=== PATIENT | female | born 1975 | race Caucasian/White ===

== ENCOUNTER 2017-01-22 05:20 | Emergency (ER) | payer MEDICAID ==
[~2017-01-22] VITALS: Ht 157.5 cm; Wt 94.3 kg
--- NOTE | 2017-01-22 05:26 | Emergency Room Report ---
History of Present Illness General Chief Complaint: To Be Triaged Source: Patient Present Illness HPI 41YOF walk-in with SOB and dry cough for 1 month Has not been medically evaluated Denies smoking, history of asthma STRONG family history of asthma Denies fever/chills, other medical problems Allergies: Coded Allergies: ACETAMINOPHEN (Verified Allergy, Unknown, 01/22/17) CODEINE (Verified Allergy, Unknown, 01/22/17) Patient History Past Medical History: none Past Surgical History: none Pertinent Family History: asthma Social History: Denies: smoking, alcohol use, drug use Now: No Immunizations: UTD Reviewed Nursing Documentation: PMH: Agreed, PSxH: Agreed Review of Systems All Other Systems: negative except mentioned in HPI Physical Exam Sp02 EP Interpretation: reviewed, normal General Appearance: normal inspection, well appearing, no apparent distress, alert, GCS 15, non-toxic Head: normocephalic, atraumatic Eyes: bilateral eye PERRL, bilateral eye EOMI ENT: normal ENT inspection, hearing grossly normal, normal voice Neck: normal inspection, full range of motion, supple, no bony tend Respiratory: normal inspection, lungs clear, normal breath sounds, no respiratory distress, no retraction, no accessory muscle use, speaking full sentences, wheezing Cardiovascular #1: regular rate, rhythm, no edema Gastrointestinal: normal inspection, normal bowel sounds, non tender, soft, no guarding, no hernia Genitourinary: no CVA tenderness Musculoskeletal: normal inspection, back normal, normal range of motion, Sirena' s Sign negative Neurologic: normal inspection, alert, oriented x3, responsive, heel burnisher III-XII nml as tested, speech normal Psychiatric: normal inspection, judgement/insight normal, mood/affect normal Skin: normal inspection, normal color, no rash Medical Decision Making ER Course VSS. Afebrile Insp/Exp wheezing Improved with duonebs X3 and prednisone Likely asthma CXR negative for PNA DC Home with PMD followup for PFTs Rx predisone, MDI DC Rhythm Strip Diag. Results EP Interpretation: yes Chest X-Ray Diagnostic Results Chest X-Ray Diagnostic Results : Chest X-Ray Ordered: Yes # of Views/Limited/Complete: 1 View Indication: Shortness of Breath EP Interpretation: Yes Interpretation: no consolidation, no effusion, no pneumothorax, no acute cardiopulmonary disease Impression: No acute disease Electronically Signed by: Dr Karen Gerardo MD Status: improved Disposition: HOME, SELF-CARE Scripts Albuterol Sulfate (VENTOLIN HFA) 18 Gm Hfa.aer.ad 1 PUFF INH EVERY 6 HOURS for cough, SOB, #18 GM 0 Refills Prov: KAREN GERARDO M.D. 01/22/17 Prednisone* (PREDNISONE*) 20 Mg Tablet 40 MG ORAL DAILY for 5 Days, #10 TAB Prov: KAREN GERARDO M.D. 01/22/17 KAREN GERARDO M.D. Jan 22, 2017 05:26
[2017-01-22] MEDS ORDERED: NKM (05:28)
[2017-01-22] MEDS: Albuterol ud Inhalation HHN SCH ×3 (05:43→06:05)
[2017-01-22] MEDS: Ipratropium 0.02% Inh Soln 2.5ml UD HHN SCH ×3 (05:44→06:05)
[2017-01-22 05:48] VITALS: BP 125/85
[2017-01-22] MEDS ORDERED: PREDNISONE20 MG ORAL (05:48)
[2017-01-22] MEDS ORDERED: VENTOLIN HFA18 GM INH (05:48)
[2017-01-22 07:27] VITALS: BP 118/61
[2017-01-22 07:41] VITALS: BP 118/61
--- NOTE | 2017-01-22 12:10 | Diagnostic Imaging Report ---
Indication: Dyspnea Comparison: None A single view chest radiograph was obtained. Findings: Cardiomediastinal appearance is within normal limits for age. Pulmonary vascularity is appropriate. The diaphragmatic contour is smooth and costophrenic angles are sharp. No pleural effusions are identified. The bones are unremarkable. Impression: No acute findings
== END 2017-01-22 07:43 | disposition home or self-care (01) ==
LOC: EMR 06:47
DX: R06.02 Shortness of breath (principal); R05 Cough; R06.2 Wheezing; Z88.6 Allergy status to analgesic agent
CPT/HCPCS: 71010; 94640; 94664; 99284; J7512

== ENCOUNTER 2017-03-03 11:59 | Emergency (ER) | payer MEDICAID ==
[~2017-03-03] VITALS: Ht 157.5 cm; Wt 68.0 kg
[~2017-03-03 11:59] MED LIST: NKM; PREDNISONE20 MG ORAL; VENTOLIN HFA18 GM INH
[2017-03-03] MEDS: Albuterol ud Inhalation HHN SCH ×3 (12:10→13:03)
[2017-03-03] MEDS: Ipratropium 0.02% Inh Soln 2.5ml UD HHN SCH ×3 (12:10→13:02)
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
[2017-03-03 13:00] VITALS: BP 117/55
[2017-03-03] MEDS ORDERED: ADVAIR 250-501 EACH INH (13:49)
[2017-03-03] MEDS ORDERED: PREDNISONE20 MG ORAL (13:49)
[2017-03-03 14:00] VITALS: BP 111/56
[2017-03-03 14:30] VITALS: BP 117/55
--- NOTE | 2017-03-03 17:24 | Diagnostic Imaging Report ---
Indication: Reason For Exam: COUGH Technique: One view of the chest Comparison: 01/22/2017 Findings: Lungs and pleural spaces are clear. Heart size is normal. No significant interim change Impression: No acute process
== END 2017-03-03 14:33 | disposition home or self-care (01) ==
LOC: EMR 12:30
DX: J45.901 Unspecified asthma with (acute) exacerbation (principal); Z88.6 Allergy status to analgesic agent
CPT/HCPCS: 71010; 99284; J7512

== ENCOUNTER 2017-06-18 21:49 | Emergency (ER) | payer MEDICAID, OTHER ==
[~2017-06-18] VITALS: Ht 157.5 cm; Wt 79.4 kg
[~2017-06-18 21:49] MED LIST changes: +ADVAIR 250-501 EACH INH
[2017-06-18] MEDS ORDERED: FERROUS SULFAT325 MG ORAL (22:07)
[2017-06-18 22:55] LABS: APPEARANCE,URINE CLOUDY; BASOPHILS % (AUTO) 0.5 % (0.0-2.0); BILIRUBIN, URINE NEGATIVE (NEGATIVE); EOSINOPHILS % (AUTO) 0.9 % (0.0-3.0); GLUCOSE, URINE (UA) NEGATIVE (NEGATIVE); HEMATOCRIT 32.5 % (37.0-47.0); HEMOGLOBIN 9.4 G/DL (12.0-16.0); KETONES,URINE 1+ (NEGATIVE); LEUKOCYTE ESTERASE ,URINE 3+ (NEGATIVE); LYMPHOCYTES % (AUTO) 14.7 % (20.0-45.0); MEAN CORPUSCULAR VOLUME 67 FL (80-99); MONOCYTES % (AUTO) 3.8 % (1.0-10.0); NEUTROPHILS % (AUTO) 80.1 % (45.0-75.0); NITRITE,URINE NEGATIVE (NEGATIVE); PH,URINE 5 (4.5-8.0); PLATELET COUNT 273 K/UL (150-450); PROTEIN,URINE 2+ (NEGATIVE); RED BLOOD COUNT 4.85 M/UL (4.20-5.40); RED CELL DISTRIBUTION WIDTH 17.8 % (11.6-14.8); UROBILINOGEN,URINE 1 MG/DL (0.0-1.0); WHITE BLOOD COUNT 11.4 K/UL (4.8-10.8)
--- NOTE | 2017-06-18 22:55 | Emergency Room Report ---
History of Present Illness General Chief Complaint: Abdominal Pain Source: Patient Present Illness HPI 41-year-old female with no sig pmhx p/w abdominal pain 3days. localized to lower abdomen, periumbilical region and left lower region, non radiating, sharp in nature, intermittent. No relieving or exacerbating factors. Some nausea but no vomiting no diarrhea or constipation + fever, chills. No hx of abdominal surgeries. No hx of endoscopies/colonoscopies. No dysuria or hematuria. Denies being Allergies: Coded Allergies: ACETAMINOPHEN (Verified Allergy, Unknown, 01/22/17) BANANA (Verified Allergy, Unknown, 06/18/17) CODEINE (Verified Allergy, Unknown, 01/22/17) PINEAPPLE (Verified Allergy, Unknown, 06/18/17) Patient History Past Medical History: see triage record Past Surgical History: none Pertinent Family History: none Last Menstrual Period: 05/28/17 Now: No : 5 Para: 4 Reviewed Nursing Documentation: PMH: Agreed; PSxH: Agreed Nursing Documentation-PMH Hx Asthma: Yes Review of Systems All Other Systems: negative except mentioned in HPI Physical Exam Vital Signs Date Time Temp Pulse Resp B/P (MAP) Pulse Ox O2 Delivery O2 Flow Rate FiO2 06/18/17 22:02 99.3 100 14 127/82 98 Room Air 99.3 Sp02 EP Interpretation: reviewed, normal General Appearance: alert, GCS 15, non-toxic, moderate distress Head: normocephalic, atraumatic Eyes: bilateral eye normal inspection, bilateral eye PERRL, bilateral eye EOMI ENT: normal ENT inspection, normal pharynx, normal voice, moist mucus membranes Neck: normal inspection, full range of motion, supple Respiratory: normal inspection, lungs clear, normal breath sounds, no respiratory distress, no retraction, no wheezing, speaking full sentences, chest symmetrical Cardiovascular #1: normal inspection, regular rate, rhythm, no edema, normal capillary refill Cardiovascular #2: 2+ radial (R), 2+ radial (L) Gastrointestinal: other - Suprapubic and left lower quadrant tenderness, voluntary guarding, no rebound, no rigidity, normal bowel sounds Musculoskeletal: normal inspection, back normal, normal range of motion, non- tender Neurologic: normal inspection, alert, oriented x3, responsive, motor strength/ tone normal, sensory intact, normal gait, speech normal Psychiatric: normal inspection, judgement/insight normal, memory normal Skin: normal inspection, normal color, no rash, warm/dry, well hydrated, normal turgor Medical Decision Making Diagnostic Impression: Primary Impression: Abdominal pain Additional Impression: Urinary tract infection ER Course 41-year-old female with abdominal pain Differential Diagnosis: Gastritis, gastroenteritis, cholecystitis, appendicitis, diverticulitis,, UTI/ pyelo Plan Basic labs, ua pain control, IVF CT abdopelvis ER course: Patient has remained stable during ED stay. Pain improved. UA positive CT neg excpet possible mesenteric adenitis Disposition: Patient is to be discharged to home with keflex Patient is instructed to follow up with their primary care doctor within 5 days. Strict return precautions discussed with patient such as fever, chills, worsening/severe abdominal pain, nausea, vomiting, black or bloody stools, which may indicate severe illness. Patient verbalizes understanding and agrees with plan. Please note that this Emergency Department Report was dictated using [employer] technology software, occasionally this can lead to erroneous entry secondary to interpretation by the dictation equipment Laboratory Tests Test 06/18/17 22:30 White Blood Count 11.4 K/UL (4.8-10.8) H Red Blood Count 4.85 M/UL (4.20-5.40) Hemoglobin 9.4 G/DL (12.0-16.0) L Hematocrit 32.5 % (37.0-47.0) L Mean Corpuscular Volume 67 FL (80-99) L Mean Corpuscular Hemoglobin 19.4 PG (27.0-31.0) L Mean Corpuscular Hemoglobin Concent 29.0 G/DL (32.0-36.0) L Red Cell Distribution Width 17.8 % (11.6-14.8) H Platelet Count 273 K/UL (150-450) Mean Platelet Volume 8.3 FL (6.5-10.1) Neutrophils (%) (Auto) 80.1 % (45.0-75.0) H Lymphocytes (%) (Auto) 14.7 % (20.0-45.0) L Monocytes (%) (Auto) 3.8 % (1.0-10.0) Eosinophils (%) (Auto) 0.9 % (0.0-3.0) Basophils (%) (Auto) 0.5 % (0.0-2.0) Urine Color Yellow Urine Appearance Cloudy Urine pH 5 (4.5-8.0) Urine Specific [place] 1.020 (1.005-1.035) Urine Protein 2+ (NEGATIVE) H Urine Glucose (UA) Negative (NEGATIVE) Urine Ketones 1+ (NEGATIVE) H Urine Occult Blood 2+ (NEGATIVE) H Urine Nitrite Negative (NEGATIVE) Urine Bilirubin Negative (NEGATIVE) Urine Urobilinogen 1 MG/DL (0.0-1.0) H Urine Leukocyte Esterase 3+ (NEGATIVE) H Urine RBC 5-10 /HPF (0 - 2) H Urine WBC Tntc /HPF (0 - 2) H Urine Squamous Epithelial Cells Moderate /LPF (NONE/OCC) H Urine Bacteria Many /HPF (NONE) H Urine HCG, Qualitative Negative (NEGATIVE) Sodium Level 135 MMOL/L (136-145) L Potassium Level 3.5 MMOL/L (3.5-5.1) Chloride Level 102 MMOL/L (98-107) Carbon Dioxide Level 26 MMOL/L (21-32) Anion Gap 7 mmol/L (5-15) Blood Urea Nitrogen 9 mg/dL (7-18) Creatinine 0.7 MG/DL (0.55-1.30) Estimate Glomerular Filtration Rate > 60 mL/min (>60) Glucose Level 133 MG/DL (74-106) H Lactic Acid Level 1.10 mmol/L (0.66-2.22) Calcium Level 8.5 MG/DL (8.5-10.1) Total Bilirubin 0.4 MG/DL (0.2-1.0) Aspartate Amino Transferase (AST) 10 U/L (15-37) L Alanine Aminotransferase (ALT) 23 U/L (12-78) Alkaline Phosphatase 112 U/L (46-116) Total Protein 8.1 G/DL (6.4-8.2) Albumin 3.6 G/DL (3.4-5.0) Globulin 4.5 g/dL Albumin/Globulin Ratio 0.8 (1.0-2.7) L Lipase 83 U/L (73-393) CT/MRI/US Diagnostic Results CT/MRI/US Diagnostic Results : Imaging Test Ordered: CT ABDO PELVIS Impression CT ABDOMEN & PELVIS With Contrast: Mildly prominent nodes are seen in the mesentery along the right side of the abdomen. This may be related to mesenteric adenitis. Question of some fatty infiltration of the liver. Status post cholecystectomy. The intra-abdominal organs are otherwise unremarkable. The appendix is unremarkable. Diverticulosis without evidence for diverticulitis. No evidence for bowel related inflammatory changes. No evidence for significant bowel loop dilation to suggest an obstructive process. No free intraperitoneal fluid or free intraperitoneal gas. Probable mild linear atelectasis versus scarring at the lung bases. Small umbilical hernia containing fat only. Mild degenerative changes of the thoracolumbar spine. Last Vital Signs Date Time Temp Pulse Resp B/P (MAP) Pulse Ox O2 Delivery O2 Flow Rate FiO2 06/18/17 22:02 99.3 100 14 127/82 98 Room Air 99.3 Disposition: HOME, SELF-CARE Condition: Improved Scripts Cephalexin* (KEFLEX*) 500 Mg Capsule 500 MG ORAL Q6H for 7 Days, #28 CAP 0 Refills Prov: Emanuel Segovia M.D. 06/18/17 Emanuel Segovia M.D. Jun 18, 2017 22:55
[2017-06-18 22:57] LABS: COLOR,URINE YELLOW
[2017-06-18 23:00] VITALS: BP 127/82
[2017-06-18 23:04] LABS: ANION GAP 7 mmol/L (5-15); BLOOD UREA NITROGEN 9 mg/dL (7-18); CALCIUM 8.5 MG/DL (8.5-10.1); CARBON DIOXIDE 26 MMOL/L (21-32); CHLORIDE 102 MMOL/L (98-107); CREATININE 0.7 MG/DL (0.55-1.30); POTASSIUM 3.5 MMOL/L (3.5-5.1); SODIUM 135 MMOL/L (136-145)
[2017-06-18 23:08] LABS: ALANINE AMINOTRANSFERASE 23 U/L (12-78); ALBUMIN 3.6 G/DL (3.4-5.0); ALBUMIN/GLOBULIN RATIO 0.8 (1.0-2.7); ALKALINE PHOSPHATASE 112 U/L (46-116); ASPARTATE AMINO TRANSFERASE 10 U/L (15-37); BILIRUBIN,TOTAL 0.4 MG/DL (0.2-1.0)
[2017-06-18] MEDS ORDERED: KEFLEX500 MG ORAL (23:20)
[2017-06-19 01:52] VITALS: BP 127/78
--- NOTE | 2017-06-19 08:47 | Diagnostic Imaging Report ---
Clinical Indication: Abdominal pain for 4 days Technique: No oral contrast utilized, per emergency room physician request IV administration nonionic contrast. Venous phase spiral acquisition obtained through the abdomen and pelvis. Multiplanar reconstructions were generated. Total dose length product 968.28 mGycm. CTDIvol(s) 18.6 mGy. Dose reduction achieved using automated exposure control Comparison: none Findings: The appendix is normal. There is colonic diverticulosis. No evidence of diverticulitis. There is a tiny fat-containing umbilical hernia. No small bowel distention. No free or loculated intraperitoneal air or fluid. Distal esophagus, stomach, duodenum are unremarkable. The liver is mildly hypoattenuating, consistent with fatty change. The gallbladder is surgically absent. No biliary ductal dilatation. The pancreas is unremarkable The spleen is borderline enlarged, measuring 13.4 cm long axis dimension. The adrenals, kidneys are unremarkable. The uterus is mildly enlarged and demonstrates a few low attenuation masses, probably fibroids. The bladder is unremarkable. Mildly prominent nodes are seen in the right lower quadrant. No pelvic or retroperitoneal mass or adenopathy. The included lung bases are clear except for minimal atelectasis in the inferior lingula. The bones are unremarkable Impression: Artery prominent right lower quadrant lymph nodes, nonspecific, could indicate mesenteric adenitis or reactive adenopathy No acute abnormality otherwise Borderline splenomegaly Mild fatty liver Diverticulosis without evidence of diverticulitis Fibroid uterus Incidental findings of minimal lingular atelectasis, small fat-containing umbilical hernia, prior cholecystectomy This agrees with the preliminary interpretation provided overnight by [facility] teleradiology service. The CT scanner at [facility] is accredited by the [employer] and the scans are performed using protocols designed to limit radiation exposure to as low as reasonably achievable to attain images of sufficient resolution adequate for diagnostic evaluation.
== END 2017-06-19 01:52 | disposition home or self-care (01) ==
LOC: EMR 22:18
DX: N39.0 Urinary tract infection, site not specified (principal); R10.9 Unspecified abdominal pain; J45.909 Unspecified asthma, uncomplicated; Z88.6 Allergy status to analgesic agent; Z91.018 Allergy to other foods; Z90.49 Acquired absence of other specified parts of digestive tract; K57.90 Diverticulosis of intestine, part unspecified, without perforation or abscess without bleeding; K42.9 Umbilical hernia without obstruction or gangrene
CPT/HCPCS: 36415; 74177; 80053; 81003; 81025; 83605; 83690; 85025; 87040; 87086; 96374; 96375; 99284; J2405; Q9967

== ENCOUNTER 2018-04-17 01:09 | Emergency (ER) | payer OTHER ==
[~2018-04-17] VITALS: Ht 157.5 cm; Wt 83.9 kg
[~2018-04-17 01:09] MED LIST changes: +FERROUS SULFAT325 MG ORAL; +KEFLEX500 MG ORAL
[2018-04-17 01:23] VITALS: BP 151/91
--- NOTE | 2018-04-17 01:23 | NUR ---
ED Nurse Note: Patient walk in c/o pressure in chest radiating to back and shortness of breath for 3x days. Patient reports hx of asthma. pt appears asymptomtic with no accessory muscle use, O2 sat 99% room air and is alert and oriented times 4. lung sounds clear bi laterally.
[2018-04-17] MEDS ORDERED: PREDNISONE20 MG ORAL (02:10)
--- NOTE | 2018-04-17 02:11 | Emergency Room Report ---
History of Present Illness General Chief Complaint: Chest Pain Source: Patient Present Illness HPI Is a 42-year-old female with a history of asthma. She presents with chief complaint of chest tightness. The last 3 days her asthma been acting up. She' s been wheezing and coughing. Better with her inhaler. Was take a deeper she felt chest tightness. She felt short of breath. She was concerned so she came in. Now pain is to the upper chest area. No nausea no vomiting. Coughing but nonproductive in nature. No fever. No diaphoresis but no exertional component. Allergies: Coded Allergies: ACETAMINOPHEN (Verified Allergy, Unknown, 01/22/17) BANANA (Verified Allergy, Unknown, 06/18/17) CODEINE (Verified Allergy, Unknown, 01/22/17) PINEAPPLE (Verified Allergy, Unknown, 06/18/17) Patient History Past Medical History: see triage record, old chart reviewed, asthma Past Surgical History: other Pertinent Family History: none Social History: Denies: smoking Last Menstrual Period: 04/10/2018 Now: No Immunizations: other Reviewed Nursing Documentation: PMH: Agreed; PSxH: Agreed Nursing Documentation-PMH Past Medical History: No History, Except For Hx Asthma: Yes Hx COPD: Yes Review of Systems Eye: Denies: eye pain, blurred vision ENT: Denies: ear pain, nose congestion, throat swelling Respiratory: Reports: shortness of breath; Denies: cough Cardiovascular: Reports: chest pain; Denies: palpitations Gastrointestinal: Denies: abdominal pain, diarrhea, nausea, vomiting Musculoskeletal: Denies: back pain, joint pain Skin: Denies: rash Neurological: Denies: headache, numbness Endocrine: Denies: increased thirst, increased urine Hematologic/Lymphatic: Denies: easy bruising All Other Systems: negative except mentioned in HPI Physical Exam Vital Signs Date Time Temp Pulse Resp B/P (MAP) Pulse Ox O2 Delivery O2 Flow Rate FiO2 04/17/18 01:12 97.5 93 16 151/91 96 Room Air 04/17/18 01:23 99 vitals with high blood pressure Sp02 EP Interpretation: reviewed, normal General Appearance: well appearing, no apparent distress, alert Head: normocephalic, atraumatic Eyes: bilateral eye PERRL, bilateral eye EOMI ENT: hearing grossly normal, normal pharynx Neck: full range of motion, supple, no meningismus Respiratory: chest non-tender, lungs clear, normal breath sounds Cardiovascular #1: regular rate, rhythm, no murmur Gastrointestinal: normal bowel sounds, non tender, no mass, no organomegaly, no bruit, non-distended Musculoskeletal: back normal, gait/station normal, normal range of motion Psychiatric: mood/affect normal Skin: warm/dry Medical Decision Making Diagnostic Impression: Primary Impression: Chest pain Qualified Codes: R07.9 - Chest pain, unspecified Additional Impression: Asthma Qualified Codes: J45.20 - Mild intermittent asthma, uncomplicated ER Course Patient with chest pressure secondary to her asthma. No evidence of ACS, PE, dissection to name a few. EKG unremarkable. Troponin negative after 3 days. We'll discharge home. EKG Diagnostic Results Rate: normal Rhythm: NSR ST Segments: no acute changes Rhythm Strip Diag. Results EP Interpretation: yes Rate: 80 Rhythm: NSR, no PVC's, no ectopy Last Vital Signs Date Time Temp Pulse Resp B/P (MAP) Pulse Ox O2 Delivery O2 Flow Rate FiO2 04/17/18 01:23 93 16 Room Air 99 04/17/18 01:23 97.5 151/91 96 Status: improved Disposition: HOME, SELF-CARE Condition: Stable Scripts Prednisone* (PREDNISONE*) 20 Mg Tablet 40 MG ORAL DAILY, #8 TAB Prov: Filipe Moreira MD 04/17/18 Patient Instructions: Nonspecific Chest Pain Additional Instructions: Follow-up with your doctor in 7 days. Return if worse. Filipe Moreira MD Apr 17, 2018 02:11
[2018-04-17 02:21] VITALS: BP_SYST 144; BP_SYST 151; BP_DIAS 89; BP_DIAS 91
--- NOTE | 2018-04-17 02:23 | NUR ---
ED Nurse Note: PT is Dc per ERMD order. pt is instructed to follow up with primary provider as soon as possible. pt is instructed to return to ER if any variance of symptoms, questions or concerns. pt has left with all DC notes and prescriptions. pt has taught back and shows understanding of DC notes and prescriptions. pt vital signs are stable as well as condition and status. pt is stable for DC. pt vital signs status and condition is reported to ERMD prior to DC. pt is alert and oriented times 4. pt is able to ambulate. ID band removed
== END 2018-04-17 02:30 | disposition home or self-care (01) ==
LOC: EMR 02:09
DX: R07.89 Other chest pain (principal); J45.20 Mild intermittent asthma, uncomplicated; J44.9 Chronic obstructive pulmonary disease, unspecified; Z88.6 Allergy status to analgesic agent; Z88.5 Allergy status to narcotic agent
CPT/HCPCS: 84484; 93005; 99283; J7512

== ENCOUNTER 2018-06-07 02:34 | Emergency (ER) | payer OTHER ==
[~2018-06-07] VITALS: Ht 157.5 cm; Wt 108.4 kg
--- NOTE | 2018-06-07 02:44 | NUR ---
ED Nurse Note: pt came to ed c/o sob and chest pain due to coughing. per pt sob began at 1200 today. per pt she uses albuterol and qvar
[2018-06-07 02:45] VITALS: BP 135/70
[2018-06-07] MEDS ORDERED: Albuterol ud Inhalation HHN ONE ×2 (02:45→03:30)
[2018-06-07] MEDS ORDERED: Ipratropium 0.02% Inh Soln 2.5ml UD HHN ONE (02:45)
--- NOTE | 2018-06-07 02:48 | Emergency Room Report ---
History of Present Illness General Chief Complaint: Asthma Source: Patient, Medical Record Present Illness HPI Is a 42-year-old female with history of asthma. She presents with chief complaint shortness breath and asthma exacerbation. She thinks is triggered by smoke. She went to [place] and checked into a hotel and have to walk to the area.. The trigger asthma. She been complaining of shortness of breath the last to 3 days. Not getting better with her inhaler. No nausea no vomiting but worse with exertion. Worse lying flat. Got worse tonight. No fever chills. no other complaint. Allergies: Coded Allergies: ACETAMINOPHEN (Verified Allergy, Unknown, 01/22/17) BANANA (Verified Allergy, Unknown, 06/18/17) CODEINE (Verified Allergy, Unknown, 01/22/17) PINEAPPLE (Verified Allergy, Unknown, 06/18/17) Patient History Past Medical History: see triage record, old chart reviewed, asthma Past Surgical History: other Pertinent Family History: none Social History: Denies: smoking Last Menstrual Period: 05/18/18 Now: No Immunizations: other Reviewed Nursing Documentation: PMH: Agreed; PSxH: Agreed Nursing Documentation-PMH Past Medical History: No History, Except For Hx Asthma: Yes Hx COPD: Yes Review of Systems Eye: Denies: eye pain, blurred vision ENT: Denies: ear pain, nose congestion, throat swelling Respiratory: Reports: cough, shortness of breath, wheezing Cardiovascular: Denies: chest pain, palpitations Gastrointestinal: Denies: abdominal pain, diarrhea, nausea, vomiting Musculoskeletal: Denies: back pain, joint pain Skin: Denies: rash Neurological: Denies: headache, numbness Endocrine: Denies: increased thirst, increased urine Hematologic/Lymphatic: Denies: easy bruising All Other Systems: negative except mentioned in HPI Physical Exam Vital Signs Date Time Temp Pulse Resp B/P (MAP) Pulse Ox O2 Delivery O2 Flow Rate FiO2 06/07/18 02:36 99.1 129 25 135/70 90 Room Air vitals tachycardia and hypoxia Sp02 EP Interpretation: reviewed, abnormal General Appearance: well appearing, alert, mild distress, obese Head: normocephalic, atraumatic Eyes: bilateral eye PERRL, bilateral eye EOMI ENT: hearing grossly normal, normal pharynx Neck: full range of motion, supple, no meningismus Respiratory: chest non-tender, respiratory distress, decreased breath sounds, wheezing Cardiovascular #1: no murmur, tachycardia - Heart rate 110 Gastrointestinal: normal bowel sounds, non tender, no mass, no organomegaly, no bruit, non-distended Musculoskeletal: back normal, gait/station normal, normal range of motion Psychiatric: mood/affect normal Skin: warm/dry Medical Decision Making Diagnostic Impression: Primary Impression: Asthma exacerbation Qualified Codes: J45.901 - Unspecified asthma with (acute) exacerbation Additional Impression: Community acquired pneumonia Qualified Codes: J18.1 - Lobar pneumonia, unspecified organism ER Course Patient presents with asthma exacerbation. She remained tachycardic. Chest x- rays unremarkable. Labs unremarkable. We'll get CT scan to rule out PE. Denies recent travel or other than to [place]. No calf tenderness. Not on control pill. No recent trauma. No family history of DVT/PE. CT scan neg for PE but showed developing infiltrate/inflammatory changes. will put on abx. pt felt better. no wheezing. Lab Results Impression labs are normal Rhythm Strip Diag. Results EP Interpretation: yes Rate: 115 Rhythm: NSR, no PVC's, no ectopy Chest X-Ray Diagnostic Results Chest X-Ray Diagnostic Results : Chest X-Ray Ordered: Yes # of Views/Limited/Complete: 1 View Indication: Shortness of Breath EP Interpretation: Yes Interpretation: no consolidation, no effusion, no pneumothorax, no acute cardiopulmonary disease Impression: No acute disease Electronically Signed by: Filipe Moreira MD CT/MRI/US Diagnostic Results CT/MRI/US Diagnostic Results : Imaging Test Ordered: CT chest Impression Read by radiologist. No evidence of PE. Probable infectious versus inflammatory small airway disease involving right upper lobe. Last Vital Signs Date Time Temp Pulse Resp B/P (MAP) Pulse Ox O2 Delivery O2 Flow Rate FiO2 06/07/18 02:45 129 25 Room Air 06/07/18 02:36 99.1 135/70 90 Status: improved Disposition: HOME, SELF-CARE Condition: Stable Scripts Prednisone* (PREDNISONE*) 20 Mg Tablet 40 MG ORAL DAILY, #8 TAB Prov: Filipe Moreira MD 06/07/18 Ibuprofen* (MOTRIN*) 600 Mg Tablet 600 MG ORAL THREE TIMES A DAY, #30 TAB 0 Refills Prov: Filipe Moreira MD 06/07/18 Azithromycin* (ZITHROMAX*) 250 Mg Tablet 250 MG ORAL DAILY, #6 TAB 0 Refills Take two tables once daily for 1 day, then one tablet once daily for 4 days. Prov: Filipe Moreira MD 06/07/18 Patient Instructions: Asthma, Adult Additional Instructions: Increase fluids. Follow up with your Dr. in 2 to 3 days for recheck. Return if symptom worsen. Filipe Moreira MD Jun 07, 2018 02:48
--- NOTE | 2018-06-07 02:54 | NUR ---
ED Nurse Note: RT at bedside giving breathing treatment
--- NOTE | 2018-06-07 03:08 | NUR ---
ED Nurse Note: breathing treatment completed
[2018-06-07] MEDS ORDERED: Albuterol ud Inhalation ONE (03:31)
--- NOTE | 2018-06-07 03:39 | NUR ---
ED Nurse Note: RT at bedside for second order of breathing treatment
--- NOTE | 2018-06-07 03:44 | NUR ---
ED Nurse Note: urine and blood specimen sent to lab
[2018-06-07 03:49] LABS: BASOPHILS % (AUTO) 0.7 % (0.0-2.0); EOSINOPHILS % (AUTO) 3.5 % (0.0-3.0); HEMATOCRIT 37.2 % (37.0-47.0); HEMOGLOBIN 11.7 G/DL (12.0-16.0); LYMPHOCYTES % (AUTO) 22.6 % (20.0-45.0); MEAN CORPUSCULAR VOLUME 79 FL (80-99); MONOCYTES % (AUTO) 6.4 % (1.0-10.0); NEUTROPHILS % (AUTO) 66.8 % (45.0-75.0); PLATELET COUNT 234 K/UL (150-450); RED BLOOD COUNT 4.72 M/UL (4.20-5.40); RED CELL DISTRIBUTION WIDTH 15.9 % (11.6-14.8); WHITE BLOOD COUNT 5.8 K/UL (4.8-10.8)
[2018-06-07 03:50] LABS: APPEARANCE,URINE CLEAR; BILIRUBIN, URINE NEGATIVE (NEGATIVE); COLOR,URINE PALE YELLOW; GLUCOSE, URINE (UA) NEGATIVE (NEGATIVE); KETONES,URINE NEGATIVE (NEGATIVE); LEUKOCYTE ESTERASE ,URINE 1+ (NEGATIVE); NITRITE,URINE NEGATIVE (NEGATIVE); PH,URINE 6.5 (4.5-8.0); PROTEIN,URINE NEGATIVE (NEGATIVE); UROBILINOGEN,URINE NORMAL MG/DL (0.0-1.0)
--- NOTE | 2018-06-07 03:55 | NUR ---
ED Nurse Note: BREATHING TREATMENT COMPLETED
[2018-06-07 04:12] LABS: ANION GAP 11 mmol/L (5-15); BLOOD UREA NITROGEN 10 mg/dL (7-18); CALCIUM 8.6 MG/DL (8.5-10.1); CARBON DIOXIDE 26 MMOL/L (21-32); CHLORIDE 104 MMOL/L (98-107); CREATININE 0.8 MG/DL (0.55-1.30); POTASSIUM 3.5 MMOL/L (3.5-5.1); SODIUM 141 MMOL/L (136-145)
[2018-06-07 04:24] VITALS: BP 132/56
[2018-06-07] MEDS ORDERED: Isovue-370 150ml vial INJ PRN (05:00)
--- NOTE | 2018-06-07 05:24 | NUR ---
ED Nurse Note: PT WENT DOWN TO CT
--- NOTE | 2018-06-07 05:39 | NUR ---
ED Nurse Note: PT RETURM FROM CT
[2018-06-07 06:24] VITALS: BP 117/59
[2018-06-07] MEDS ORDERED: ZITHROMAX250 MG ORAL (06:34)
[2018-06-07] MEDS ORDERED: IBUPROFEN600 MG ORAL (06:34)
[2018-06-07] MEDS ORDERED: PREDNISONE20 MG ORAL (06:34)
[2018-06-07 06:40] VITALS: BP 117/59
--- NOTE | 2018-06-07 06:40 | NUR ---
ER DISCHARGE NOTE: Patient is cleared to be discharged per ERMD, pt is aox4, on room air, with stable vital signs. pt was given dc and prescription instructions, pt was able to verbalize understanding, pt id band and iv site removed without complications. pt is able to ambulate with steady gait. pt took all belongings.
--- NOTE | 2018-06-07 09:59 | Diagnostic Imaging Report ---
Indication: Chest pain Technique: Continuous helical transaxial imaging of the chest was obtained from the thoracic inlet to the upper abdomen during rapid intravenous contrast administration. Arterial phase of enhancement obtained. Coronal 2-D reformats were also obtained and maximum intensity projection images in multiple planes. Study obtained in a Siemens sensation [address] Automatic Exposure Control was utilized. Total Dose length Product (DLP): 1147.[address] Dose Index Volume (CTDIvol): 42.72 mGy Comparison: None Findings: There is suboptimal opacification of the pulmonary artery. There is no obvious central pulmonary embolus. The aorta appears normal. Heart is unremarkable. Small centrilobular opacities demonstrated in the right upper lobe. No pleural effusion identified. The visualized part of the upper abdomen is unremarkable. The imaging of the lung bases is incomplete with the posterior sulcal aspects of the lungs below the [id number] of this examination. IMPRESSION: Suboptimal bolus. No obvious central pulmonary embolus. This is significantly limited with regard to evaluation for pulmonary embolus. Normal appearance of aorta. No evidence of aortic dissection or aneurysm. Mild right upper lobe centrilobular opacities, nonspecific. Consider bronchiolar/peribronchial infection/inflammation. The CT scanner at [facility] is accredited by the [employer] and the scans are performed using dose optimization techniques as appropriate to a performed exam including Automatic Exposure control.
== END 2018-06-07 06:40 | disposition home or self-care (01) ==
LOC: EMR 03:03
DX: J45.901 Unspecified asthma with (acute) exacerbation (principal); J18.9 Pneumonia, unspecified organism; J44.9 Chronic obstructive pulmonary disease, unspecified
CPT/HCPCS: 36415; 71045; 71275; 80048; 80307; 81001; 81025; 85025; 94640; 94664; 96361; 96365; 99284; J7512; Q9967

== ENCOUNTER 2018-08-03 00:47 | Emergency (ER) | payer OTHER ==
[~2018-08-03] VITALS: Ht 157.5 cm; Wt 108.4 kg
[~2018-08-03 00:47] MED LIST changes: +IBUPROFEN600 MG ORAL; +ZITHROMAX250 MG ORAL
[2018-08-03] MEDS ORDERED: QVAR7.3 GM INH (00:55)
[2018-08-03] MEDS ORDERED: VITAMIN C250 MG ORAL (00:55)
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
[2018-08-03] MEDS ORDERED: HYDROCODON-ACE1 EA15 ORAL (01:56)
[2018-08-03] MEDS ORDERED: IBUPROFEN600 MG ORAL (01:56)
[2018-08-03] MEDS ORDERED: PREDNISONE20 MG ORAL (01:56)
[2018-08-03 02:00] VITALS: BP 144/86
[2018-08-03] MEDS ORDERED: HYDROcodone/Acetamin 5/325 tab ORAL ONE (02:00)
[2018-08-03 02:12] VITALS: BP 154/92
--- NOTE | 2018-08-03 09:20 | Diagnostic Imaging Report ---
Indication: Neck Pain Findings: 5 views of the cervical spine were obtained. There is no acute fracture identified. Alignment is normal. The open-mouth odontoid view shows an intact dens and good alignment of the lateral masses with respect to the body of C2. There is no soft tissue swelling. Oblique views show widely patent neural foramina. There is mild narrowing of the C5-6 disc. There is reversal cervical lordosis which may be due to muscle spasm. Impression: Negative for acute injury. Reversal of cervical lordosis may be due to muscle spasm Mild degenerative disc disease C5-6
== END 2018-08-03 02:13 | disposition home or self-care (01) ==
LOC: EMR 01:15
DX: M54.12 Radiculopathy, cervical region (principal); J44.9 Chronic obstructive pulmonary disease, unspecified; Z88.6 Allergy status to analgesic agent; Z91.018 Allergy to other foods
CPT/HCPCS: 72052; 99283

== ENCOUNTER 2019-01-31 22:16 | Emergency (ER) | payer MEDICAID, OTHER ==
[~2019-01-31] VITALS: Ht 157.5 cm; Wt 108.9 kg
[~2019-01-31 22:16] MED LIST changes: +HYDROCODON-ACE1 EA15 ORAL; +QVAR7.3 GM INH; +VITAMIN C250 MG ORAL
[2019-01-31 23:20] VITALS: BP 148/85
[2019-02-01] MEDS ORDERED: Albuterol ud Inhalation HHN ONE
[2019-02-01] MEDS ORDERED: Ipratropium 0.02% Inh Soln 2.5ml UD HHN ONE
[2019-02-01] MEDS ORDERED: ALBUTEROL SULF8.5 GM INH (00:50)
[2019-02-01] MEDS ORDERED: PREDNISONE20 MG ORAL (00:50)
--- NOTE | 2019-02-01 00:51 | Emergency Room Report ---
History of Present Illness General Chief Complaint: Upper Respiratory Illness Source: Patient Present Illness HPI Is a 43-year-old female with a history of asthma. She presents with chief complaint of coughing and shortness of breath. Onset for last couple days. She also has runny nose and congestion. Worse with exertion. Worse with coughing. Better with her inhaler. Denies any other complaint. Allergies: Coded Allergies: ACETAMINOPHEN (Verified Allergy, Unknown, 01/22/17) BANANA (Verified Allergy, Unknown, 06/18/17) CODEINE (Verified Allergy, Unknown, 01/22/17) PINEAPPLE (Verified Allergy, Unknown, 06/18/17) Patient History Past Medical History: see triage record, old chart reviewed, asthma Past Surgical History: other Pertinent Family History: none Social History: Denies: smoking Last Menstrual Period: n/a Now: No Immunizations: other Reviewed Nursing Documentation: PMH: Agreed; PSxH: Agreed Nursing Documentation-PMH Past Medical History: No History, Except For Hx Asthma: Yes Hx COPD: Yes Review of Systems Eye: Denies: eye pain, blurred vision ENT: Reports: nose congestion; Denies: ear pain, throat swelling Respiratory: Reports: cough, shortness of breath, wheezing Cardiovascular: Denies: chest pain, palpitations Gastrointestinal: Denies: abdominal pain, diarrhea, nausea, vomiting Musculoskeletal: Denies: back pain, joint pain Skin: Denies: rash Neurological: Denies: headache, numbness Endocrine: Denies: increased thirst, increased urine Hematologic/Lymphatic: Denies: easy bruising All Other Systems: negative except mentioned in HPI Physical Exam Vital Signs Date Time Temp Pulse Resp B/P (MAP) Pulse Ox O2 Delivery O2 Flow Rate FiO2 01/31/19 22:26 98.8 88 18 148/85 (106) 95 Room Air 02/01/19 00:10 21 Vitals normal Sp02 EP Interpretation: reviewed, normal General Appearance: well appearing, no apparent distress, alert Head: normocephalic, atraumatic Eyes: bilateral eye PERRL, bilateral eye EOMI ENT: hearing grossly normal, normal pharynx Neck: full range of motion, supple, no meningismus Respiratory: chest non-tender, wheezing - Slight Cardiovascular #1: regular rate, rhythm, no murmur Gastrointestinal: normal bowel sounds, non tender, no mass, no organomegaly, no bruit, non-distended Musculoskeletal: back normal, gait/station normal, normal range of motion Psychiatric: mood/affect normal Medical Decision Making Diagnostic Impression: Primary Impression: Upper respiratory infection Qualified Codes: J06.9 - Acute upper respiratory infection, unspecified Additional Impression: Asthma exacerbation, mild ER Course Patient presents with asthma exacerbation secondary to URI symptoms. No evidence of pneumonia, ACS, PE, dissection to name a few. She felt better now. Will discharge home. Last Vital Signs Date Time Temp Pulse Resp B/P (MAP) Pulse Ox O2 Delivery O2 Flow Rate FiO2 02/01/19 00:10 77 18 98 Room Air 21 67 18 100 01/31/19 23:20 98.8 148/85 Status: improved Disposition: HOME, SELF-CARE Condition: Stable Scripts Prednisone* (PREDNISONE*) 20 Mg Tablet 40 MG ORAL DAILY, #8 TAB Prov: Filipe Moreira MD 02/01/19 Albuterol Sulfate* (ALBUTEROL SULFATE MDI*) 8.5 Gm Hfa.aer.ad 2 PUFF INH Q4H PRN for cough/wheezing, #1 EA 0 Refills Prov: Filipe Moreira MD 02/01/19 [facility]errals: [facility] (PCP) Additional Instructions: Increase fluids. Follow-up with your doctor in 3 to 5 days for recheck if not better. Return if worse. Filipe Moreira MD Feb 01, 2019 00:51
[2019-02-01 00:56] VITALS: BP 148/85
== END 2019-02-01 00:54 | disposition home or self-care (01) ==
LOC: EMR 23:15
DX: J06.9 Acute upper respiratory infection, unspecified (principal); J45.901 Unspecified asthma with (acute) exacerbation; Z88.6 Allergy status to analgesic agent; Z91.018 Allergy to other foods; J44.9 Chronic obstructive pulmonary disease, unspecified
CPT/HCPCS: 94640; 94664; J7512; Z7502; 99284

== ENCOUNTER 2019-04-30 19:31 | Emergency (ER) | payer MEDICAID ==
[~2019-04-30] VITALS: Ht 157.5 cm; Wt 108.9 kg
[~2019-04-30 19:31] MED LIST changes: +ALBUTEROL SULF8.5 GM INH
--- NOTE | 2019-04-30 19:41 | NUR ---
ED Nurse Note: ER PA at bedside
[2019-04-30 19:50] VITALS: BP 124/106
--- NOTE | 2019-04-30 19:50 | NUR ---
ED Nurse Note: Patient walked into ED from home d/t SOB and chest tightness that started about an hour prior to arrival. Patient aao x 4 and ambulatory. Hx of asthma. Patient pain 4/10 d/t difficulty breathing. Patient placed in gown and conveyor monitor. No acute distress noted during assessment.
--- NOTE | 2019-04-30 20:02 | NUR ---
ED Nurse Note: Blood and urine collected, send to lab.
[2019-04-30] MEDS: Albuterol/Ipratropium 3ml neb HHN SCH (20:05)
--- NOTE | 2019-04-30 20:10 | NUR ---
ED Nurse Note: RT at bedside, breathing treatment started.
--- NOTE | 2019-04-30 20:14 | Diagnostic Imaging Report ---
EXAM: XR Chest, 1 View CLINICAL HISTORY: SOB TECHNIQUE: Frontal view of the chest. COMPARISON: No relevant prior studies available. FINDINGS: Lungs: No consolidation. Pleural space: Unremarkable. No pneumothorax. Heart: Unremarkable. No cardiomegaly. Mediastinum: Unremarkable. Bones/joints: No acute fracture. IMPRESSION: No confluent consolidation.
[2019-04-30 20:18] LABS: BILIRUBIN, URINE NEGATIVE (NEGATIVE); COLOR,URINE PALE YELLOW; GLUCOSE, URINE (UA) NEGATIVE (NEGATIVE); KETONES,URINE NEGATIVE (NEGATIVE); LEUKOCYTE ESTERASE ,URINE NEGATIVE (NEGATIVE); NITRITE,URINE NEGATIVE (NEGATIVE); PH,URINE 5 (4.5-8.0); PROTEIN,URINE NEGATIVE (NEGATIVE); UROBILINOGEN,URINE NORMAL MG/DL (0.0-1.0)
[2019-04-30 20:23] LABS: APPEARANCE,URINE SLIGHTLY CLOUDY
[2019-04-30 20:27] LABS: ANION GAP 10 mmol/L (5-15); BASOPHILS % (AUTO) 0.9 % (0.0-2.0); BLOOD UREA NITROGEN 8 mg/dL (7-18); CALCIUM 9.1 MG/DL (8.5-10.1); CARBON DIOXIDE 28 MMOL/L (21-32); CHLORIDE 106 MMOL/L (98-107); CREATININE 0.7 MG/DL (0.55-1.30); EOSINOPHILS % (AUTO) 6.6 % (0.0-3.0); HEMOGLOBIN 9.5 G/DL (12.0-16.0); LYMPHOCYTES % (AUTO) 35.4 % (20.0-45.0); MEAN CORPUSCULAR VOLUME 70 FL (80-99); MONOCYTES % (AUTO) 6.1 % (1.0-10.0); NEUTROPHILS % (AUTO) 51.1 % (45.0-75.0); PLATELET COUNT 390 K/UL (150-450); POTASSIUM 3.7 MMOL/L (3.5-5.1); RED BLOOD COUNT 4.88 M/UL (4.20-5.40); RED CELL DISTRIBUTION WIDTH 18.9 % (11.6-14.8); SODIUM 144 MMOL/L (136-145); WHITE BLOOD COUNT 9.1 K/UL (4.8-10.8)
[2019-04-30 20:33] LABS: ALANINE AMINOTRANSFERASE 23 U/L (12-78); ALBUMIN 3.6 G/DL (3.4-5.0); ALBUMIN/GLOBULIN RATIO 0.8 (1.0-2.7); ALKALINE PHOSPHATASE 97 U/L (46-116); ASPARTATE AMINO TRANSFERASE 16 U/L (15-37); BILIRUBIN,TOTAL 0.3 MG/DL (0.2-1.0)
--- NOTE | 2019-04-30 20:42 | NUR ---
ED Nurse Note: ER PA at bedside.
--- NOTE | 2019-04-30 20:53 | Emergency Room Report ---
History of Present Illness General Chief Complaint: Asthma Present Illness HPI 43-year-old female with history of asthma anemia and GERD complaining of shortness of breath x1 day. Patient is actively wheezing. Complains of minor cough. Denies recent travel, pleuritic chest pain, chest pain radiation. Complains of posttussive chest pain. Reports that she uses albuterol as well as Qvar. Patient is also obese. Denies any fever and chills, URI symptoms. Denies leg swelling. Denies recent travel, reports that she is ambulatory. Denies cancer history, taking control. Denies syncope. Is in mild distress and tachycardic. Denies . Allergies: Coded Allergies: ACETAMINOPHEN (Verified Allergy, Unknown, 01/22/17) BANANA (Verified Allergy, Unknown, 06/18/17) CODEINE (Verified Allergy, Unknown, 01/22/17) PINEAPPLE (Verified Allergy, Unknown, 06/18/17) Patient History Past Medical History: see triage record Past Surgical History: unable to obtain Pertinent Family History: none Last Menstrual Period: 04/2019 Now: No Immunizations: UTD Reviewed Nursing Documentation: PMH: Agreed; PSxH: Agreed Nursing Documentation-PMH Hx Asthma: Yes Hx COPD: Yes Review of Systems All Other Systems: negative except mentioned in HPI Physical Exam Vital Signs Date Time Temp Pulse Resp B/P (MAP) Pulse Ox O2 Delivery O2 Flow Rate FiO2 04/30/19 19:39 98.4 113 30 154/130 (138) 91 Room Air Sp02 EP Interpretation: abnormal - Pulse ox 91, heart rate 130 General Appearance: alert, GCS 15, non-toxic, mild distress Head: normocephalic, atraumatic Eyes: bilateral eye normal inspection, bilateral eye PERRL ENT: hearing grossly normal, normal pharynx, no angioedema, normal voice Neck: full range of motion, supple, thyroid normal, no meningismus, no bony tend, supple/symm/no masses Respiratory: chest non-tender, no rhonchi, no respiratory distress, no retraction, no accessory muscle use, speaking full sentences, wheezing Cardiovascular #1: no edema, no murmur, normal capillary refill Gastrointestinal: non tender, soft, no mass Rectal: deferred Genitourinary: no CVA tenderness Musculoskeletal: back normal, normal range of motion, no calf tenderness Neurologic: alert, motor strength/tone normal, oriented x3, sensory intact, responsive, speech normal Psychiatric: judgement/insight normal Skin: no rash Lymphatic: normal inspection, no adenopathy Medical Decision Making PA Attestation All diagnoses and treatment plans were reviewed and discussed with my supervising physician Dr. Wang Diagnostic Impression: Primary Impression: Asthma exacerbation Additional Impressions: Upper respiratory infection Iron deficiency anemia ER Course 43-year-old female with history of asthma anemia and GERD complaining of shortness of breath x1 day. Patient is actively wheezing. Complains of minor cough. Denies recent travel, pleuritic chest pain, chest pain radiation. Complains of posttussive chest pain. Reports that she uses albuterol as well as Qvar. Patient is also obese. Denies any fever and chills, URI symptoms. Denies leg swelling. Denies recent travel, reports that she is ambulatory. Denies cancer history, taking control. Denies syncope. Is in mild distress and tachycardic. Denies . Ddx considered but are not limited to: bronchitis, PNA, URI viral, bacterial bronchitis, asthma exacerbation Vital signs: are WNL, pt. is afebrile H&PE are most consistent with: Asthma exacerbation, iron deficiency anemia, URI viral as patient is non-smoker ORDERS: Chest x-ray, EKG, CBC, CMP, troponin, UA, tox screen, albuterol, prednisone, guaifenesin, ferrous sulfate ED INTERVENTIONS: 3 treatments of albuterol ipratropium nebulizer, prednisone DISCHARGE: At this time pt. is stable for d/c to home. Will provide printed patient care instructions, and any necessary prescriptions. Care plan and follow up instructions have been discussed with the patient prior to discharge. Patient take medication as directed, follow with primary care provider, have primary doctor assess anemia as patient reports that she has been anemic for a long time. If worsening symptoms return to the emergency room. At this time patient does not have any abdominal pain or bleeding. No further testing needed. However advised patient return to emergency room worsening symptoms. No pleuritic chest pain reported. Patient is low risk for DVT. No CTA is needed at this time. Tachycardia secondary to asthma exacerbation and resolved EKG Diagnostic Results Rate: tachycardiac Rhythm: other - tachy ST Segments: no acute changes Other Impression No acute ST changes Chest X-Ray Diagnostic Results Chest X-Ray Diagnostic Results : Chest X-Ray Ordered: Yes # of Views/Limited/Complete: 1 View Indication: Shortness of Breath EP Interpretation: Yes JCAOB Xray: Interpretation reviewed, by supervising MD, and agrees with findings. Interpretation: no consolidation, no effusion, no pneumothorax Impression: No acute disease Electronically Signed by: Denny Hernandez PA-C Last Vital Signs Date Time Temp Pulse Resp B/P (MAP) Pulse Ox O2 Delivery O2 Flow Rate FiO2 04/30/19 20:06 90 13 91 Room Air 04/30/19 19:50 98.4 124/106 Status: improved Disposition: HOME, SELF-CARE Condition: Stable [facility]errals: [facility] ([facility]P) Patient Instructions: Asthma, Adult, Iron Deficiency Anemia, Adult, Easy-to- Read, Upper Respiratory Infection, Adult, [id number] Additional Instructions: Take medication as directed, follow with primary care provider, increase oral hydration, high primary care doctor assess your anemia, possible abdominal ultrasound to rule out fibroids versus other abnormalities and sources of bleed. If worsening symptoms return to the emergency room. Also you need to be having your asthma reassessed by your primary care doctor. Denny Angel Apr 30, 2019 20:53
[2019-04-30] MEDS ORDERED: FERROUS SULFAT325 MG ORAL (20:55)
[2019-04-30] MEDS ORDERED: VENTOLIN HFA18 GM INH (20:55)
[2019-04-30] MEDS ORDERED: PREDNISONE20 MG ORAL (20:55)
[2019-04-30] MEDS ORDERED: GUAIFENESI100 MG/5 M ORAL (20:55)
[2019-04-30 21:00] VITALS: BP 116/74
--- NOTE | 2019-04-30 21:08 | NUR ---
ER DISCHARGE NOTE: Patient is cleared to be discharged per ERMD, pt is aox4, on room air, with stable vital signs, heart rate slightly elevated d/t breathing treatment, per ER PA, ok to discharge. pt was given dc and prescription instructions, pt was able to verbalize understanding, pt id band and iv site removed without intact complications. pt is able to ambulate with steady gait. pt took all belongings. pt stable upon discharge.
== END 2019-04-30 21:00 | disposition home or self-care (01) ==
LOC: EMR 19:52
DX: J45.901 Unspecified asthma with (acute) exacerbation (principal); J06.9 Acute upper respiratory infection, unspecified; D50.9 Iron deficiency anemia, unspecified; Z88.6 Allergy status to analgesic agent; Z91.018 Allergy to other foods; R00.0 Tachycardia, unspecified
CPT/HCPCS: 36415; 71045; 80053; 81001; 81025; 84484; 85025; 93005; J7512; Z7502; 99284; J7620

== ENCOUNTER 2019-05-01 12:31 | Inpatient (IN) | payer MEDICAID ==
[~2019-05-01] VITALS: Ht 157.5 cm; Wt 109.3 kg
[~2019-05-01 12:31] MED LIST changes: +GUAIFENESI100 MG/5 M ORAL
[2019-05-01] MEDS ORDERED: Ipratropium 0.02% Inh Soln 2.5ml UD HHN ONE (13:00)
[2019-05-01] MEDS ORDERED: Solu-MEDROL 125mg Inj IVP ONE (13:00)
[2019-05-01] MEDS: Albuterol ud Inhalation HHN SCH ×3 (13:02→13:06)
--- NOTE | 2019-05-01 13:15 | NUR ---
ED Nurse Note:pt. came from home with asthma exacerbation, and SOB, blood and urine sent to labs, VSS, given IV fluids and meds ,pt. got breathing treatment
[2019-05-01 13:27] VITALS: BP 137/99
--- NOTE | 2019-05-01 14:08 | Emergency Room Report ---
History of Present Illness General Chief Complaint: Asthma Source: Patient Present Illness HPI History of asthma. She was seen last night here and received a breathing treatment. She also received prednisone. She says she felt better after this but when she got home she needed to immediately use her inhaler and has been having increased shortness of breath since that time. She has had difficulty with her asthma for 3 weeks at least. On some days she uses her inhaler only once. However though over the last 2 days her asthma has become severe. She has had to use prednisone in the past. She is never been intubated. This is the worst attack she has had. She was worse last night but still feels short of breath at this time with minimal exertional capacity. She still feels some significantly short of breath with exertion. She denies any vomiting or diarrhea. Some of the phlegm she is coughing up is thick and yellow. Approximately 2 to 3 weeks ago she started having right knee and right upper calf pain. She denies any swelling. This is the first time she is felt this tenderness. She denies hemoptysis. She not only feels chest pressure but also has some pleuritic pain with coughing. Also she has headache with the cough. The chest pain is rated 5/10 and does not radiate and is somewhat intermittent. She denies prior blood clots. She denies family history of blood clots. She has a desk job. She states she is allergic to Tylenol with codeine. She states she is not allergic to Tylenol. No sore throat, palpitations, nausea, vomiting, diarrhea, dysuria, abdominal pain, rashes, visual changes, dizziness. Allergies: Coded Allergies: BANANA (Verified Allergy, Unknown, 06/18/17) CODEINE (Verified Allergy, Unknown, 01/22/17) PINEAPPLE (Verified Allergy, Unknown, 06/18/17) Patient History Past Medical History: see triage record, old chart reviewed Past Surgical History: genevieve Social History: Denies: smoking Social History Narrative With significant other Reviewed Nursing Documentation: PMH: Agreed; PSxH: Agreed Nursing Documentation-PMH Hx Asthma: Yes Hx COPD: Yes Review of Systems All Other Systems: negative except mentioned in HPI Physical Exam Vital Signs Date Time Temp Pulse Resp B/P (MAP) Pulse Ox O2 Delivery O2 Flow Rate FiO2 05/01/19 12:36 98.4 116 24 137/99 (112) 90 Room Air 05/01/19 13:02 21 Sp02 EP Interpretation: reviewed, abnormal - Interpreted as low by me General Appearance: well appearing, GCS 15, non-toxic, mild distress Head: normocephalic, atraumatic Eyes: bilateral eye normal inspection, bilateral eye PERRL ENT: normal pharynx, moist mucus membranes Neck: supple Respiratory: no rhonchi, respiratory distress - Minimal, decreased breath sounds, accessory muscle use - Minimal, wheezing, expiration, inspiration Cardiovascular #1: no edema, tachycardia Cardiovascular #2: 2+ radial (R) Gastrointestinal: non tender, soft, decreased bowel sounds Genitourinary: no CVA tenderness Musculoskeletal: normal range of motion, other - Repeat reported tenderness reported tenderness right upper calf with negative Homans or cords Neurologic: alert, oriented x3, grossly normal Psychiatric: mood/affect normal - Slightly anxious Skin: no rash, warm/dry Medical Decision Making Diagnostic Impression: Primary Impression: Status asthmaticus Qualified Codes: J45.52 - Severe persistent asthma with status asthmaticus Additional Impression: Intermittent hypoxia ER Course Patient represents to emergency department with wheezing shortness of breath and dyspnea with chest pain. She received a breathing treatment and prednisone yesterday. Differential includes pneumonia, status asthmaticus, asthma exacerbation, pulmonary embolus amongst others. Patient evaluated with EKG, and labs. Chest x-ray from yesterday reviewed. Treatment with IV hydration, Solu-Medrol and breathing treatments. EKG with sinus tachycardia nonspecific ST-T wave changes. Chest x-ray from yesterday no infiltrates. White count upper limits of normal without left shift. No eosinophilia. CMP unremarkable. Patient still with some wheezing but much improved. Very shaky and complaining of headache. O2 saturations occasionally drop to 88%. Hovering around 92% post treatments. Due to history of right leg pain, chest pain, intermittent hypoxia with worst asthma attack CT angiogram ordered to exclude pulmonary embolus. Patient admitted to telemetry. CT excludes pulmonary embolus. Right subsegmental atelectasis and azithromycin ordered. Discussed with Dr. Mcdaniel who examined patient in ED. Laboratory Tests Test 05/01/19 13:50 White Blood Count 10.8 K/UL (4.8-10.8) Red Blood Count 4.70 M/UL (4.20-5.40) Hemoglobin 9.7 G/DL (12.0-16.0) L Hematocrit 31.9 % (37.0-47.0) L Mean Corpuscular Volume 68 FL (80-99) L Mean Corpuscular Hemoglobin 20.6 PG (27.0-31.0) L Mean Corpuscular Hemoglobin Concent 30.3 G/DL (32.0-36.0) L Red Cell Distribution Width 17.9 % (11.6-14.8) H Platelet Count 364 K/UL (150-450) Mean Platelet Volume 6.5 FL (6.5-10.1) Neutrophils (%) (Auto) 77.2 % (45.0-75.0) H Lymphocytes (%) (Auto) 18.6 % (20.0-45.0) L Monocytes (%) (Auto) 3.6 % (1.0-10.0) Eosinophils (%) (Auto) 0.2 % (0.0-3.0) Basophils (%) (Auto) 0.4 % (0.0-2.0) Urine Color Pale yellow Urine Appearance Clear Urine pH 5 (4.5-8.0) Urine Specific [place] 1.010 (1.005-1.035) Urine Protein Negative (NEGATIVE) Urine Glucose (UA) Negative (NEGATIVE) Urine Ketones Negative (NEGATIVE) Urine Blood 3+ (NEGATIVE) H Urine Nitrite Negative (NEGATIVE) Urine Bilirubin Negative (NEGATIVE) Urine Urobilinogen Normal MG/DL (0.0-1.0) Urine Leukocyte Esterase Negative (NEGATIVE) Urine RBC 5-10 /HPF (0 - 2) H Urine WBC 0-2 /HPF (0 - 2) Urine Squamous Epithelial Cells Moderate /LPF (NONE/OCC) H Urine Bacteria Occasional /HPF (NONE) Urine HCG, Qualitative Negative (NEGATIVE) Sodium Level 144 MMOL/L (136-145) Potassium Level 3.7 MMOL/L (3.5-5.1) Chloride Level 106 MMOL/L (98-107) Carbon Dioxide Level 26 MMOL/L (21-32) Anion Gap 13 mmol/L (5-15) Blood Urea Nitrogen 9 mg/dL (7-18) Creatinine 0.6 MG/DL (0.55-1.30) Estimate Glomerular Filtration Rate > 60 mL/min (>60) Glucose Level 140 MG/DL (74-106) H Calcium Level 9.4 MG/DL (8.5-10.1) Magnesium Level 2.0 MG/DL (1.8-2.4) Total Bilirubin 0.3 MG/DL (0.2-1.0) Aspartate Amino Transferase (AST) 14 U/L (15-37) L Alanine Aminotransferase (ALT) 22 U/L (12-78) Alkaline Phosphatase 100 U/L (46-116) Total Protein 8.4 G/DL (6.4-8.2) H Albumin 3.5 G/DL (3.4-5.0) Globulin 4.9 g/dL Albumin/Globulin Ratio 0.7 (1.0-2.7) L Microbiology Date/Time Source Procedure Growth Status 05/01/19 13:50 Nasal Nares - Final Complete 05/01/19 13:50 Nasal Nares - Final Complete EKG Diagnostic Results Rate: tachycardiac Rhythm: NSR ST Segments: no acute changes Rhythm Strip Diag. Results EP Interpretation: yes Rhythm: no PVC's, no ectopy, other - Flore[place]io tachycardia Chest X-Ray Diagnostic Results Chest X-Ray Diagnostic Results : Chest X-Ray Ordered: Yes # of Views/Limited/Complete: 1 View Indication: Shortness of Breath EP Interpretation: Yes Interpretation: no consolidation, no effusion, no pneumothorax Impression: No acute disease Electronically Signed by: Electronically signed by Bo Bansal MD CT/MRI/US Diagnostic Results CT/MRI/US Diagnostic Results : Imaging Test Ordered: CT angiogram chest Impression No evidence of pulmonary embolism. Subsegmental atelectasis in the right middle lobe. Lungs otherwise appear clear. Status post cholecystectomy. Last Vital Signs Date Time Temp Pulse Resp B/P (MAP) Pulse Ox O2 Delivery O2 Flow Rate FiO2 05/01/19 19:48 98.4 05/01/19 19:28 102 19 135/85 95 Room Air 21 Status: improved Disposition: ADMITTED INPATIENT Condition: Serious Bo Bansal MD May 01, 2019 14:08
[2019-05-01 14:17] LABS: BASOPHILS % (AUTO) 0.4 % (0.0-2.0); EOSINOPHILS % (AUTO) 0.2 % (0.0-3.0); HEMATOCRIT 31.9 % (37.0-47.0); HEMOGLOBIN 9.7 G/DL (12.0-16.0); LYMPHOCYTES % (AUTO) 18.6 % (20.0-45.0); MEAN CORPUSCULAR VOLUME 68 FL (80-99); MONOCYTES % (AUTO) 3.6 % (1.0-10.0); NEUTROPHILS % (AUTO) 77.2 % (45.0-75.0); PLATELET COUNT 364 K/UL (150-450); RED CELL DISTRIBUTION WIDTH 17.9 % (11.6-14.8); WHITE BLOOD COUNT 10.8 K/UL (4.8-10.8)
[2019-05-01] MEDS ORDERED: Acetaminophen 500mg (ES) tab ORAL ONE (14:30)
[2019-05-01 14:33] LABS: APPEARANCE,URINE CLEAR; BILIRUBIN, URINE NEGATIVE (NEGATIVE); COLOR,URINE PALE YELLOW; GLUCOSE, URINE (UA) NEGATIVE (NEGATIVE); KETONES,URINE NEGATIVE (NEGATIVE); LEUKOCYTE ESTERASE ,URINE NEGATIVE (NEGATIVE); NITRITE,URINE NEGATIVE (NEGATIVE); PH,URINE 5 (4.5-8.0); PROTEIN,URINE NEGATIVE (NEGATIVE); UROBILINOGEN,URINE NORMAL MG/DL (0.0-1.0)
[2019-05-01 14:35] LABS: ANION GAP 13 mmol/L (5-15); BLOOD UREA NITROGEN 9 mg/dL (7-18); CALCIUM 9.4 MG/DL (8.5-10.1); CARBON DIOXIDE 26 MMOL/L (21-32); CHLORIDE 106 MMOL/L (98-107); CREATININE 0.6 MG/DL (0.55-1.30); POTASSIUM 3.7 MMOL/L (3.5-5.1); SODIUM 144 MMOL/L (136-145)
[2019-05-01 14:40] LABS: ALANINE AMINOTRANSFERASE 22 U/L (12-78); ALBUMIN 3.5 G/DL (3.4-5.0); ALBUMIN/GLOBULIN RATIO 0.7 (1.0-2.7); ALKALINE PHOSPHATASE 100 U/L (46-116); ASPARTATE AMINO TRANSFERASE 14 U/L (15-37); BILIRUBIN,TOTAL 0.3 MG/DL (0.2-1.0)
[2019-05-01] MEDS ORDERED: Morphine Sulfate 2mg/ml Inj(IV/IM USE ONLY) IVP ONE (15:00)
[2019-05-01] MEDS ORDERED: Omnipaque 350 100ml vial INJ PRN (15:00)
[2019-05-01 15:55] VITALS: BP 135/102
[2019-05-01] MEDS ORDERED: Azithromycin 500 MG in D5W 275 ML IVPB ONE (16:00)
--- NOTE | 2019-05-01 16:11 | Diagnostic Imaging Report ---
ndication: Shortness of breath, asthma Technique: IV administration nonionic contrast. Spiral acquisitions obtained from the lung bases to the lung apices. Multiplanar and 3-D reconstructions were generated. Total dose length product 495 mGycm. CTDIvol(s) , one, 63, 13 mGy. Dose reduction achieved using automated exposure control Comparison: 06/07/2018 Findings: There is adequate opacification of the pulmonary arteries. No definite intraluminal filling defects or other findings to suggest acute pulmonary embolus are identified. Normal caliber pulmonary arteries. No evidence of right ventricular dilatation. Normal caliber thoracic aorta and proximal branches, no evidence of aneurysm or dissection. The lungs demonstrate atelectasis of the right middle lobe. There is some groundglass opacity focally at the right lung base. The left lung is clear. The pleural spaces are clear. The heart size is upper limits of normal. No mediastinal or hilar mass or adenopathy. The included thyroid is unremarkable. No axillary or chest wall mass or adenopathy. Included upper abdominal anatomy demonstrates evidence prior cholecystectomy. Impression: No evidence of acute pulmonary embolus or acute thoracic vascular pathology Right middle lobe atelectasis Nonspecific right basilar groundglass opacity, may reflect a small area of inflammation Prior cholecystectomy This agrees with the preliminary interpretation provided overnight by [facility] teleradiology service, with minor variation. The CT scanner at [facility] is accredited by the [employer] and the scans are performed using protocols designed to limit radiation exposure to as low as reasonably achievable to attain images of sufficient resolution adequate for diagnostic evaluation.
[2019-05-01 18:20] VITALS: BP 113/57
[2019-05-01] MEDS ORDERED: Excedrin Migraine tab ORAL ONE (18:45)
[2019-05-01] MEDS ORDERED: DiphenhydrAMINE 25mg Tab ORAL PRN (19:00)
[2019-05-01] MEDS ORDERED: Albuterol/Ipratropium 3ml neb HHN PRN (19:00)
[2019-05-01] MEDS ORDERED: LORazepam 1mg tab ORAL PRN (19:00)
--- NOTE | 2019-05-01 19:10 | NUR ---
ED Nurse Note: report received from JAY Elise. Pt resting in bed, VSS, no s/s of distress noted. Pt reports pain has improved to 5/10.
[2019-05-01 19:28] VITALS: BP 135/85
--- NOTE | 2019-05-01 21:29 | NUR ---
ED Nurse Note: pt resting in bed, awaiting transfer. VSS, no s/s of distress noted.
--- NOTE | 2019-05-01 22:10 | NUR ---
ED Nurse Note: Report given to JAY ARZAET on telemetry unit. Pt ready for transfer to unit. ERMD aware. VSS, no s/s of distress noted. PT to meet pt in room.
--- NOTE | 2019-05-01 22:16 | History & Physical ---
History of Present Illness General Date patient seen: May 01, 2019 Time patient seen: 04:00 Reason for Hospitalization: Asthma Present Illness HPI This is a 43-year-old female with a past medical history of asthma, diagnosed approximately 3 years ago, who presents emergency room secondary to a few days of worsening shortness of breath, cough and wheezing. Patient was actually seen here in the emergency room a day ago and sent home but has not obtained relief with medication. At home she uses nebulizers and inhalers. She does complain of calf pain and shortness of breath and pleuritic chest pain so ER did rule patient out for pulmonary embolism and CT angiogram was negative. After obtaining greater history with patient interestingly enough it appears that patient symptoms started after she was exposed to some harsh chemicals, sadly it sounds as though it was during her sons embalming after he approximately 3 years ago. Patient denies other symptoms and what are stated above. Will obtain Doppler ultrasound to rule out DVT She is being admitted for acute asthma exacerbation Allergies: Coded Allergies: BANANA (Verified Allergy, Unknown, 06/18/17) CODEINE (Verified Allergy, Unknown, 01/22/17) PINEAPPLE (Verified Allergy, Unknown, 06/18/17) Medication History Scheduled Albuterol Sulfate (Ventolin Hfa), 2 PUFFS INH EVERY 6 HOURS Ascorbic Acid* (Vitamin C*), 250 MG ORAL DAILY, (Reported) Beclomethasone Dipropionate 40MCG Oral Inh (Qvar 40*), 2 PUFFS INH TWICE A DAY, (Reported) Ferrous Sulfate* (Ferrous Sulfate*), 325 MG ORAL DAILY, (Reported) Ferrous Sulfate* (Ferrous Sulfate*), 325 MG ORAL TWICE A DAY Guaifenesin* (Guaifenesin*), 5 ML ORAL Q6H Prednisone* (Prednisone*), 40 MG ORAL DAILY Prednisone* (Prednisone*), 40 MG ORAL DAILY Scheduled PRN Albuterol Sulfate* (Albuterol Sulfate Mdi*), 2 PUFF INH Q4H PRN for cough/ wheezing Patient History History Provided By: Patient Healthcare decision maker Resuscitation status Advanced Directive on File Family History Family History: FH: HTN (hypertension) FH: diabetes mellitus Review of Systems Review of Symptoms General ROS: no weight loss or fever Psychological ROS: no depression or mood changes, no memory loss Ophthalmic ROS: no visual changes or eye irritation ENT ROS: no nasal congestion, hearing loss, dizziness Allergy and Immunology ROS: no allergic symptoms or urticaria Hematological and Lymphatic ROS: no swollen glands, unusual bleeding or bruising Endocrine ROS: no polyuria, polydipsia, weight changes, temperature intolerance Respiratory ROS: + SOB, Cough, Wheezing Cardiovascular ROS: no chest pain or dyspnea on exertion Gastrointestinal ROS: denies abdominal pain, bright red blood in stool. Musculoskeletal ROS: no myalgias or arthralgias Neurological ROS: no TIA or stroke symptoms Dermatological ROS: no new or changing skin lesions, rashes or pruritis Physical Exam Physical Exam General appearance: alert, cooperative, no distress, appears stated age Head: Normocephalic, without obvious abnormality, atraumatic Eyes: conjunctivae/corneas clear. PERRL, EOM's intact. Fundi benign Throat: Lips, mucosa, and tongue normal. Teeth and gums normal Neck: supple, symmetrical, trachea midline, no adenopathy, thyroid: not enlarged, symmetric, no tenderness/mass/nodules, no carotid bruit and no JVD Lungs: Diffuse wheezing Heart: regular rate and rhythm, S1, S2 normal, no murmur, click, rub or gallop Abdomen: soft, non-tender. Bowel sounds normal. No masses, no organomegaly Extremities: extremities normal, atraumatic, no cyanosis or edema Pulses: 2+ and symmetric Skin: Skin color, texture, turgor normal. No rashes or lesions Neurologic: Grossly normal Last 24 Hour Vital Signs Date Time Temp Pulse Resp B/P (MAP) Pulse Ox O2 Delivery O2 Flow Rate FiO2 05/01/19 19:48 98.4 05/01/19 19:28 98.4 102 19 135/85 95 Room Air 05/01/19 18:20 98.4 110 19 113/57 95 Room Air 05/01/19 15:56 98.4 05/01/19 15:56 98.4 05/01/19 15:55 98.4 115 21 135/102 90 Room Air 05/01/19 13:44 136 24 99 05/01/19 13:27 110 24 Room Air 05/01/19 13:27 98.4 110 24 137/99 90 Room Air 05/01/19 13:02 110 24 90 Room Air 05/01/19 12:36 98.4 116 24 137/99 (112) 90 Room Air Laboratory Tests Test 05/01/19 13:50 White Blood Count 10.8 K/UL (4.8-10.8) Red Blood Count 4.70 M/UL (4.20-5.40) Hemoglobin 9.7 G/DL (12.0-16.0) L Hematocrit 31.9 % (37.0-47.0) L Mean Corpuscular Volume 68 FL (80-99) L Mean Corpuscular Hemoglobin 20.6 PG (27.0-31.0) L Mean Corpuscular Hemoglobin Concent 30.3 G/DL (32.0-36.0) L Red Cell Distribution Width 17.9 % (11.6-14.8) H Platelet Count 364 K/UL (150-450) Mean Platelet Volume 6.5 FL (6.5-10.1) Neutrophils (%) (Auto) 77.2 % (45.0-75.0) H Lymphocytes (%) (Auto) 18.6 % (20.0-45.0) L Monocytes (%) (Auto) 3.6 % (1.0-10.0) Eosinophils (%) (Auto) 0.2 % (0.0-3.0) Basophils (%) (Auto) 0.4 % (0.0-2.0) Urine Color Pale yellow Urine Appearance Clear Urine pH 5 (4.5-8.0) Urine Specific [place] 1.010 (1.005-1.035) Urine Protein Negative (NEGATIVE) Urine Glucose (UA) Negative (NEGATIVE) Urine Ketones Negative (NEGATIVE) Urine Blood 3+ (NEGATIVE) H Urine Nitrite Negative (NEGATIVE) Urine Bilirubin Negative (NEGATIVE) Urine Urobilinogen Normal MG/DL (0.0-1.0) Urine Leukocyte Esterase Negative (NEGATIVE) Urine RBC 5-10 /HPF (0 - 2) H Urine WBC 0-2 /HPF (0 - 2) Urine Squamous Epithelial Cells Moderate /LPF (NONE/OCC) H Urine Bacteria Occasional /HPF (NONE) Urine HCG, Qualitative Negative (NEGATIVE) Sodium Level 144 MMOL/L (136-145) Potassium Level 3.7 MMOL/L (3.5-5.1) Chloride Level 106 MMOL/L (98-107) Carbon Dioxide Level 26 MMOL/L (21-32) Anion Gap 13 mmol/L (5-15) Blood Urea Nitrogen 9 mg/dL (7-18) Creatinine 0.6 MG/DL (0.55-1.30) Estimat Glomerular Filtration Rate > 60 mL/min (>60) Glucose Level 140 MG/DL (74-106) H Calcium Level 9.4 MG/DL (8.5-10.1) Magnesium Level 2.0 MG/DL (1.8-2.4) Total Bilirubin 0.3 MG/DL (0.2-1.0) Aspartate Amino Transf (AST/SGOT) 14 U/L (15-37) L Alanine Aminotransferase (ALT/SGPT) 22 U/L (12-78) Alkaline Phosphatase 100 U/L (46-116) Total Protein 8.4 G/DL (6.4-8.2) H Albumin 3.5 G/DL (3.4-5.0) Globulin 4.9 g/dL Albumin/Globulin Ratio 0.7 (1.0-2.7) L Microbiology Date/Time Source Procedure Growth Status 05/01/19 13:50 Nasal Nares - Final Complete 05/01/19 13:50 Nasal Nares - Final Complete Height (Feet): 5 Height (Inches): 2.00 Weight (Pounds): 231 Medications Current Medications Medications (Trade) Dose Ordered Sig/Ming Route PRN Reason Start Time Stop Time Status Last Admin Dose Admin Acetaminophen (Tylenol) 650 mg Q4H PRN ORAL Mild Pain (Pain Scale 1-3) 05/01/19 19:00 05/31/19 18:59 Albuterol/ Ipratropium (Albuterol/ Ipratropium) 3 ml Q6H PRN HHN Shortness of Breath 05/01/19 19:00 05/06/19 18:59 Azithromycin 500 mg/Sodium Chloride 275 ml @ 275 mls/hr DAILY IV 05/02/19 09:00 05/09/19 08:59 UNV Dextrose (Dextrose 50%) 25 ml Q30M PRN IV Hypoglycemia 05/01/19 19:00 05/31/19 18:59 Dextrose (Dextrose 50%) 50 ml Q30M PRN IV Hypoglycemia 05/01/19 19:00 05/31/19 18:59 Diphenhydramine HCl (Benadryl) 25 mg Q6H PRN ORAL Itching/Pruritis 05/01/19 19:00 05/31/19 18:59 Docusate Sodium (Colace) 100 mg EVERY 12 HOURS ORAL 05/01/19 21:00 05/31/19 20:59 UNV Enoxaparin Sodium (Lovenox) 30 mg Q24H SUBQ 05/01/19 20:00 05/31/19 19:59 UNV Famotidine (Pepcid) 20 mg BID ORAL 05/02/19 09:00 06/01/19 08:59 UNV Iohexol (Omnipaque) 100 mg NOW PRN INJ Radiology Procedure 05/01/19 15:00 05/03/19 14:46 Lorazepam (Ativan) 1 mg Q4H PRN ORAL For Anxiety 05/01/19 19:00 05/08/19 18:59 Magnesium Hydroxide (Mom) 30 ml HSPRN PRN ORAL Constipation 05/01/19 19:00 05/31/19 18:59 UNV Methylprednisolone Sodium Succinate (Solu-MEDROL) 40 mg EVERY 6 HOURS IVP 05/02/19 00:00 06/01/19 00:00 UNV Ondansetron HCl (Zofran) 4 mg Q6H PRN IVP Nausea & Vomiting 05/01/19 19:00 05/31/19 18:59 Sodium Chloride 1,000 ml @ 50 mls/hr Q20H IV 05/01/19 19:15 05/31/19 19:14 UNV Assessment/Plan Assessment/Plan: Assessment #Asthma exacerbation #Upper respiratory infection, CT angiogram negative for pulmonary embolism however does reveal atelectasis, patient has had a productive cough #Anxiety, depression-related to her son's recent passing Plan Gentle IV fluid, azithromycin IV, screen for influenza Scheduled med nebulizers and respiratory therapy treatments Solu-Medrol IV Gentle IV fluid Obtain Doppler bilateral lower extremity to rule out DVT Supportive measures, antinausea, pain, PRN blood pressure medication DVT prophylaxis Diet as tolerated MIPS Hospital declaration Disposition: Once the patient is stable to leave the hospital, I anticipate the patient will likely be discharged to the following environment Home I spent 70 minutes on this patient's case, and 40 minutes was dedicated to counseling and/or care coordination. Joanie Mcdaniel D.O. May 01, 2019 22:16
--- NOTE | 2019-05-01 22:20 | NUR ---
ER DISCHARGE NOTE: Patient is cleared to be discharged to telemetry unit per ERMD, pt is aox4, on 2L oxygen NC, with stable vital signs. pt was able to verbalize understanding, pt is able to ambulate with steady gait. pt took all belongings. to meet pt in room. Report given to JAY Vega qand pt transferred with sales support technician and one RN.
--- NOTE | 2019-05-01 22:30 | NUR ---
NURSE NOTES: Received pt from ED via gurney. Pt transferred to [facility] without any incident. Family at bedside. Received report from JAY Adhikari. Pt is A/Ox4. potline monitor is in placed; pt is tachycardic (HR: 103 bpm). IV site intact, asymptomatic, and patent. Belongings list checked and signed. Bed is in the lowest position and locked. Call light and bedside table is within reach. No signs/symptoms of acute distress noted at this time. Received admission orders from Dr. Mcdaniel. Will note and carry out.
[2019-05-01] MEDS: Docusate 100mg cap ORAL SCH (22:58)
[2019-05-01] MEDS ORDERED: Enoxaparin 40mg Inj SUBQ SCH ×2 (23:00)
[2019-05-02] VITALS: BP 136/74
[2019-05-02] MEDS: Solu-MEDROL 40mg Inj IVP SCH ×4 (00:21→17:47)
--- NOTE | 2019-05-02 00:28 | Diagnostic Imaging Report ---
Indication: Shortness of breath, calf pain, asthma Technique: Grayscale and duplex images of the bilateral lower extremity veins. Comparison: none Findings: Bilaterally, grayscale and duplex images demonstrate no evidence of intraluminal thrombus. Normal phasic Doppler waveforms, demonstrating normal augmentation response and no evidence of valvular insufficiency. Patent greater saphenous veins and tibial veins. Normal compressibility Impression: Negative for evidence of lower extremity venous thrombosis bilaterally
[2019-05-02 04:00] VITALS: BP 135/73
--- NOTE | 2019-05-02 07:23 | NUR ---
HAND-OFF: Report given to JAY Alonso. Plan of care endorsed.
[2019-05-02 07:56] LABS: HEMATOCRIT 28.3 % (37.0-47.0); HEMOGLOBIN 8.9 G/DL (12.0-16.0); MEAN CORPUSCULAR VOLUME 67 FL (80-99); PLATELET COUNT 348 K/UL (150-450); RED BLOOD COUNT 4.21 M/UL (4.20-5.40); RED CELL DISTRIBUTION WIDTH 17.9 % (11.6-14.8); WHITE BLOOD COUNT 12.9 K/UL (4.8-10.8)
--- NOTE | 2019-05-02 07:58 | NUR ---
NURSE NOTES: Received report from JAY Vega. Pt awake, A/O x4. Pt on 2L NC, wheezing heard on auscultation of the lungs. no s/sx of acute distress. Pt complains of 7/10 headache, PRN tylenol given. Bed on lowest position, call light within reach. Will continue plan of care.
[2019-05-02 08:00] VITALS: BP 129/65
[2019-05-02 08:23] LABS: ALANINE AMINOTRANSFERASE 18 U/L (12-78); ALBUMIN 3.2 G/DL (3.4-5.0); ALBUMIN/GLOBULIN RATIO 0.7 (1.0-2.7); ALKALINE PHOSPHATASE 91 U/L (46-116); ANION GAP 9 mmol/L (5-15); ASPARTATE AMINO TRANSFERASE 12 U/L (15-37); BILIRUBIN,TOTAL 0.3 MG/DL (0.2-1.0); BLOOD UREA NITROGEN 11 mg/dL (7-18); CALCIUM 8.8 MG/DL (8.5-10.1); CARBON DIOXIDE 26 MMOL/L (21-32); CHLORIDE 107 MMOL/L (98-107); CREATININE 0.5 MG/DL (0.55-1.30); POTASSIUM 4.1 MMOL/L (3.5-5.1); SODIUM 142 MMOL/L (136-145)
[2019-05-02] MEDS: Docusate 100mg cap ORAL SCH ×2 (08:57→21:26)
[2019-05-02] MEDS: Azithromycin 500 MG in NS 275 ML IV SCH (08:58)
[2019-05-02 12:00] VITALS: BP 126/78
--- NOTE | 2019-05-02 14:56 | NUR ---
*-* INSURANCE *-* ALL AVAILABLE CLINICALS HAVE BEEN FAXED TO: [facility] NO REF# PH# [phone] FAX# [phone] REVIEWS/CLINICALS & [facility] NO REF# PH# [phone] FAX# [phone] REVIEWS/CLINICALS
[2019-05-02 16:00] VITALS: BP 131/73
--- NOTE | 2019-05-02 17:01 | General Progress Note ---
Assessment/Plan Assessment/Plan: #Acute Asthma exacerbation likely 2/2 URI and anxiety from son's recent passing #Acute hypoxic respiratory failure secondary to asthma exacerbation #Nonspecific right basilar groundglass opacity, may reflect a small area of inflammation #atelectasis >influenza negative >CT angiogram negative for pulmonary embolism > Venous duplex negative -Continue scheduled Solu-Medrol -Continue azithromycin for atypical coverage -Doubt serious bacterial infection. Will d/w pulm -Continue duo nebs -Pulmonary consult regarding GGO and recurrent asthma exacerbations: Dr. Gaming Supportive measures, antinausea, pain, PRN blood pressure medication -only on QVAR at home. May need to switch to advair on discharge -Extensive discussion regarding diagnosis prognosis and plan of care with patient including triggers for asthma exacerbation and ways to prevent further exacerbations. All questions answered #Prediabetes >Hemoglobin A1C 6.3 -counseled on diet and exercise and weight loss DVT prophylaxis: Lovenox Code status: Full 38 minutes spent on this encounter. Discussed with Pulm and RN. > 50% spent on counseling and care coordination. I spent an additional 33 minutes of further face to face time on counseling and care coordination in addition to usual care as stated above. Time of note may not reflect time patient was seen. Subjective Allergies: Coded Allergies: BANANA (Verified Allergy, Unknown, 06/18/17) CODEINE (Verified Allergy, Unknown, 01/22/17) PINEAPPLE (Verified Allergy, Unknown, 06/18/17) Subjective Patient feels much better after treatment. Continues to remain on oxygen however. She states that prior to admission she did have viral upper respiratory symptoms which included a runny nose and sore throat and cough. She felt feverish but had no documented fevers. No other acute events overnight. No other complaints controlled. Review of systems: Constitutional: Denies: chills, diaphoresis, fever, malaise, weakness, other HEENT: Denies: eye pain, blurred vision, tearing, double vision, ear pain, ear discharge, nose pain, nose congestion, throat pain, throat swelling, mouth pain , mouth swelling, Cardiovascular: Denies: chest pain, edema, lightheadedness, palpitations, syncope, Respiratory: Denies: orthopnea, shortness of breath, SOB with excertion, SOB at rest, sputum, stridor, wheezing, other+ endorses some cough and SOB Gastrointestinal/Abdominal: Denies: abdomen distended, abdominal pain, black stools, tarry stools, blood in stool, constipated, diarrhea, difficulty swallowing, nausea, poor appetite, poor fluid intake, rectal bleeding, vomiting , other Genitourinary: Denies: burning, discharge, frequency, flank pain, hematuria, incontinence, pain, urgency, other Neurologic/Psychiatric: Denies: anxiety, depressed, emotional problems, headache, numbness, paresthesia, pre-existing deficit, seizure, tingling, tremors, weakness, other Endocrine: Denies: excessive sweating, flushing, intolerance to cold, intolerance to heat, increased hunger, increased thirst, increased urine, unexplained weight gain, unexplained weight loss, other Hematologic/Lymphatic: Denies: anemia, easy bleeding, easy bruising, other Objective Last 24 Hour Vital Signs Date Time Temp Pulse Resp B/P (MAP) Pulse Ox O2 Delivery O2 Flow Rate FiO2 05/02/19 16:00 98.2 79 18 131/73 (92) 97 05/02/19 12:00 97.9 78 20 126/78 (94) 96 05/02/19 11:44 80 05/02/19 08:29 Nasal Cannula 2.0 05/02/19 08:00 97.2 78 20 129/65 (86) 94 05/02/19 07:28 75 05/02/19 04:00 97.9 80 20 135/73 (93) 95 05/02/19 04:00 76 05/02/19 00:00 96 05/02/19 00:00 98.1 103 19 136/74 (94) 94 05/01/19 22:49 Nasal Cannula 2.0 05/01/19 22:20 98.4 98 17 125/75 95 Room Air 21 05/01/19 19:48 98.4 05/01/19 19:28 98.4 102 19 135/85 95 Room Air 21 05/01/19 18:20 98.4 110 19 113/57 95 Room Air 21 Intake and Output 05/01/19 05/02/19 19:00 07:00 Intake Total 100 ml 360 ml Balance 100 ml 360 ml Intake Oral 100 ml 360 ml # Voids 2 Laboratory Tests 05/02/19 06:27: White Blood Count 12.9H, Red Blood Count 4.21, Hemoglobin 8.9L, Hematocrit 28.3L , Mean Corpuscular Volume 67L, Mean Corpuscular Hemoglobin 21.0L, Mean Corpuscular Hemoglobin Concent 31.3L, Red Cell Distribution Width 17.9H, Platelet Count 348, Mean Platelet Volume 7.0, Neutrophils (%) (Auto) , Lymphocytes (%) (Auto) , Monocytes (%) (Auto) , Eosinophils (%) (Auto) , Basophils (%) (Auto) , Differential Total Cells Counted 100, Neutrophils % ( Manual) 87H, Lymphocytes % (Manual) 11L, Monocytes % (Manual) 2, Eosinophils % ( Manual) 0, Basophils % (Manual) 0, Band Neutrophils 0, Platelet Estimate Adequate, Platelet Morphology Normal, Hypochromasia 1+, Anisocytosis 1+, Prothrombin Time 10.2, Prothromb Time International Ratio 1.0, Activated Partial Thromboplast Time 24, Sodium Level 142, Potassium Level 4.1, Chloride Level 107, Carbon Dioxide Level 26, Anion Gap 9, Blood Urea Nitrogen 11, Creatinine 0.5L, Estimat Glomerular Filtration Rate > 60, Glucose Level 139H, Hemoglobin A1c 6.3H, Calcium Level 8.8, Magnesium Level 2.1, Total Bilirubin 0.3 , Aspartate Amino Transf (AST/SGOT) 12L, Alanine Aminotransferase (ALT/SGPT) 18 , Alkaline Phosphatase 91, Total Protein 7.7, Albumin 3.2L, Globulin 4.5, Albumin/Globulin Ratio 0.7L Height (Feet): 5 Height (Inches): 2.00 Weight (Pounds): 241 Objective General: [facility]DWN female in [facility], A&O x 4 HEENT: Normocephalic cephalic atraumatic, pupils equal round reactive to light and accommodation, nares patent and no symmetrical, no tonsillar exudates, mucous membranes moist CV: Regular rate regular rhythm, no murmurs, rubs, or gallops Pulm: Lungs with wheezing. No rhonchi, or rales GI: Soft, nontender, nondistended, bowel sounds present Neuro: CN 2-12 intact bilaterally, no focal signs. Ext: No lower extremity edema bilaterally Skin: no rashes lesions or ulcers Msk: Joints symmetrical in upper extremity and lower extremity bilaterally, no joint swelling. Lymph: No lymphadenopathy in upper extremity and lower extremity Manny Keys D.O. May 02, 2019 17:01
--- NOTE | 2019-05-02 19:17 | NUR ---
CASE MANAGEMENT: REVIEW 43 YEAR OLD FEMALE PRESENTED TO THE ED FROM HOME CC: SOB . ASTHMA . INHALER USE WITH NO RELIEF SI: STATUS ASTHMATICUS . INTERMITTENT HYPOXIA T 98.4 HR 116 RR 24 BP 137/99 SAT 90% ROOM AIR H/H 9.7/31.9 AST 14 CXR -- RIGHT MIDDLE LOBE ATELECTASIS IS: NS IVF X1 SOLU MEDROL IV X1 ATROVENT HHN X1 ALBUTEROL HHN X1 MORPHINE IV 2MG X1 ZOFRAN IV X1 AZITHROMYCIN IV X1 EXCEDRIN MIGRAINE PO X1 PATIENT ADMITTED TO TELEMETRY UNIT 05/01/2019 DCP: PATIENT IS FROM HOME
--- NOTE | 2019-05-02 19:29 | NUR ---
HAND-OFF: Report given to JAY Vega. Pt in stable condition, endorsed plan of care.
--- NOTE | 2019-05-02 19:30 | NUR ---
NURSE NOTES: Received pt and report from JAY Alonso. Observed pt resting in bed with both eyes open and multiple family members at bedside. Pt is A/Ox4. bus driver/monitor is in placed; pt is NSR. IV site intact, asymptomatic, and patent; running NS @ 50cc/hr. Bed is in the lowest position and locked. Call light and bedside table is within reach. No signs/symptoms of acute distress noted at this time. Will continue plan of care.
[2019-05-02 20:00] VITALS: BP 125/76
[2019-05-02] MEDS: Enoxaparin 40mg Inj SUBQ SCH (21:27)
[2019-05-03] VITALS (7 sets, daily range): BP systolic 117–143; BP diastolic 65–94
[2019-05-03] MEDS: Solu-MEDROL 40mg Inj IVP SCH ×4 (00:11→18:08)
[2019-05-03] MEDS: Milk of Magnesia 30ml Ud ORAL PRN ×2 (00:14→09:39)
--- NOTE | 2019-05-03 02:04 | NUR ---
NURSE NOTES: Observed pt asleep in bed. No signs/symptoms of acute distress noted at this time. Will continue plan of care.
[2019-05-03 07:36] LABS: BASOPHILS % (AUTO) 0.3 % (0.0-2.0); HEMATOCRIT 27.9 % (37.0-47.0); HEMOGLOBIN 8.5 G/DL (12.0-16.0); LYMPHOCYTES % (AUTO) 15.6 % (20.0-45.0); MEAN CORPUSCULAR VOLUME 67 FL (80-99); MONOCYTES % (AUTO) 3.7 % (1.0-10.0); NEUTROPHILS % (AUTO) 80.5 % (45.0-75.0); PLATELET COUNT 341 K/UL (150-450); RED BLOOD COUNT 4.19 M/UL (4.20-5.40); RED CELL DISTRIBUTION WIDTH 17.8 % (11.6-14.8); WHITE BLOOD COUNT 12.1 K/UL (4.8-10.8)
--- NOTE | 2019-05-03 08:02 | NUR ---
NURSE NOTES: Received report from Silvia RN. Pt in bed awake and oriented x4 and able to make needs known. IV in RAC 20G running with NS@50ml/hr patent and asymptomatic. BED in lowest position and locked. Side rails x2 up for safety. Call light easy to reach. Will continue to plan of care.
--- NOTE | 2019-05-03 08:02 | NUR ---
HAND-OFF: Report given to JAY Esquivel. Plan of care endorsed.
[2019-05-03 08:04] LABS: ANION GAP 9 mmol/L (5-15); BLOOD UREA NITROGEN 14 mg/dL (7-18); CALCIUM 8.6 MG/DL (8.5-10.1); CARBON DIOXIDE 26 MMOL/L (21-32); CHLORIDE 107 MMOL/L (98-107); CREATININE 0.6 MG/DL (0.55-1.30); SODIUM 142 MMOL/L (136-145)
[2019-05-03] MEDS: Docusate 100mg cap ORAL SCH ×2 (09:35→21:17)
[2019-05-03] MEDS: Enoxaparin 40mg Inj SUBQ SCH ×2 (09:40→21:18)
[2019-05-03] MEDS: Azithromycin 500 MG in NS 275 ML IV SCH (11:12)
[2019-05-03] MEDS: NovoLOG Insulin Flexpen SUBQ SCH ×3 (11:26→21:00)
[2019-05-03] MEDS ORDERED: Guaifenesin/DM 10ml syrup ORAL PRN ×2 (14:15→18:26)
[2019-05-03] MEDS ORDERED: DiphenhydrAMINE 25mg Tab ORAL PRN (18:25)
[2019-05-03] MEDS ORDERED: Albuterol/Ipratropium 3ml neb HHN PRN (18:25)
[2019-05-03] MEDS ORDERED: LORazepam 1mg tab ORAL PRN (18:26)
[2019-05-03] MEDS ORDERED: Milk of Magnesia 30ml Ud ORAL PRN (18:26)
--- NOTE | 2019-05-03 18:33 | NUR ---
NURSE NOTES: RECEIVED PATIENT A/A/OX4, AMBULATORY. FAMILY MEMBERS @ BEDSIDE. PERSONAL BELONGINGS NOTED. NO ACUTE CARDIO-RESP DISTRESS NOTED. SKIN IS INTACT. ON RA. V/S TAKEN AND RECORDED. KEPT BED IN THE LOWEST POSITION. SIDERAILS ARE UPX2, CALL LIGHT IS WITHIN REACH. BED ALARM ENGAGED AND LOCKED. WILL CONT TO MONITOR.
--- NOTE | 2019-05-03 18:46 | NUR ---
HAND-OFF: Report given to Amairani THOMPOSN. Pt remains stable.
--- NOTE | 2019-05-03 19:11 | NUR ---
HAND-OFF: Report given to
--- NOTE | 2019-05-03 19:45 | General Progress Note ---
Assessment/Plan Assessment/Plan: #Acute Asthma exacerbation likely 2/2 URI and anxiety from son's recent passing - much improved #Acute hypoxic respiratory failure secondary to asthma exacerbation - on room air #Nonspecific right basilar groundglass opacity, may reflect a small area of inflammation #atelectasis >influenza negative >CT angiogram negative for pulmonary embolism > Venous duplex negative -Continue scheduled Solu-Medrol Q6hr. Monitor blood sugars. -Continue azithromycin for atypical coverage -Doubt serious bacterial infection. Will d/w pulm -Continue duo nebs -Pulmonary consult regarding GGO and recurrent asthma exacerbations: Dr. Gaming Supportive measures, antinausea, pain, PRN blood pressure medication -only on QVAR at home. May need to switch to advair on discharge -Extensive discussion regarding diagnosis prognosis and plan of care with patient including triggers for asthma exacerbation and ways to prevent further exacerbations. All questions answered #Prediabetes >Hemoglobin A1C 6.3 -counseled on diet and exercise and weight loss -offered therapy with metformin on discharge the patient would like to think about it and consider lifestyle changes first. Extensive discussion regarding prediabetes and diet and lifestyle changes. All questions answered #normocytic anemia -iron studies -CTM -no signs of active bleeding DVT prophylaxis: Lovenox Code status: Full 37 minutes spent on this encounter. Discussed with Pulm and RN. > 50% spent on counseling and care coordination. I spent an additional 32 minutes of further face to face time on counseling and care coordination in addition to usual care as stated above. Time of note may not reflect time patient was seen. Subjective Allergies: Coded Allergies: BANANA (Verified Allergy, Unknown, 06/18/17) CODEINE (Verified Allergy, Unknown, 01/22/17) PINEAPPLE (Verified Allergy, Unknown, 06/18/17) Subjective Patient feels much better after treatment. Titrated off oxygen today. Overall feels much better but not at her baseline yet. No other acute events overnight. No other complaints controlled. Review of systems: Constitutional: Denies: chills, diaphoresis, fever, malaise, weakness, other HEENT: Denies: eye pain, blurred vision, tearing, double vision, ear pain, ear discharge, nose pain, nose congestion, throat pain, throat swelling, mouth pain , mouth swelling, Cardiovascular: Denies: chest pain, edema, lightheadedness, palpitations, syncope, Respiratory: Denies: orthopnea, with excertion, SOB at rest, sputum, stridor, wheezing, other+ endorses some cough and SOB Gastrointestinal/Abdominal: Denies: abdomen distended, abdominal pain, black stools, tarry stools, blood in stool, constipated, diarrhea, difficulty swallowing, nausea, poor appetite, poor fluid intake, rectal bleeding, vomiting , other Genitourinary: Denies: burning, discharge, frequency, flank pain, hematuria, incontinence, pain, urgency, other Neurologic/Psychiatric: Denies: anxiety, depressed, emotional problems, headache, numbness, paresthesia, pre-existing deficit, seizure, tingling, tremors, weakness, other Endocrine: Denies: excessive sweating, flushing, intolerance to cold, intolerance to heat, increased hunger, increased thirst, increased urine, unexplained weight gain, unexplained weight loss, other Hematologic/Lymphatic: Denies: anemia, easy bleeding, easy bruising, other Objective Last 24 Hour Vital Signs Date Time Temp Pulse Resp B/P (MAP) Pulse Ox O2 Delivery O2 Flow Rate FiO2 05/03/19 18:35 98.2 76 18 141/82 (101) 95 05/03/19 16:00 98.1 84 19 117/65 (82) 98 05/03/19 12:00 97.7 71 18 138/89 (105) 98 05/03/19 12:00 80 05/03/19 09:29 98 Nasal Cannula 2.0 28 05/03/19 09:29 72 20 98 Room Air 28 05/03/19 09:00 Nasal Cannula 2.0 05/03/19 08:00 98.0 76 18 137/94 (108) 96 05/03/19 08:00 76 05/03/19 04:00 97.0 67 20 138/79 (98) 97 05/03/19 04:00 66 05/03/19 00:33 79 20 99 Nasal Cannula 2.0 28 05/03/19 00:23 72 20 97 Nasal Cannula 2.0 28 05/03/19 00:23 97 Nasal Cannula 2.0 28 05/03/19 00:00 73 05/03/19 00:00 97.7 71 20 132/77 (95) 97 05/02/19 21:00 Nasal Cannula 2.0 05/02/19 20:35 81 20 97 Room Air 21 05/02/19 20:00 89 05/02/19 20:00 97.9 78 18 125/76 (92) 96 Intake and Output 05/02/19 05/03/19 19:00 07:00 Intake Total 960 ml Output Total 2 ml Balance 960 ml -2 ml Intake Oral 960 ml Output Urine Total 2 ml # Voids 4 Laboratory Tests 05/03/19 06:42: White Blood Count 12.1H, Red Blood Count 4.19L, Hemoglobin 8.5L, Hematocrit 27.9L, Mean Corpuscular Volume 67L, Mean Corpuscular Hemoglobin 20.4L, Mean Corpuscular Hemoglobin Concent 30.5L, Red Cell Distribution Width 17.8H, Platelet Count 341, Mean Platelet Volume 6.6, Neutrophils (%) (Auto) 80.5H, Lymphocytes (%) (Auto) 15.6L, Monocytes (%) (Auto) 3.7, Eosinophils (%) (Auto) 0.0, Basophils (%) (Auto) 0.3, Sodium Level 142, Potassium Level 4.0, Chloride Level 107, Carbon Dioxide Level 26, Anion Gap 9, Blood Urea Nitrogen 14, Creatinine 0.6, Estimat Glomerular Filtration Rate > 60, Glucose Level 146H, Calcium Level 8.6 Height (Feet): 5 Height (Inches): 2.00 Weight (Pounds): 241 Objective General: WDWN female in NAD, A&O x 4 HEENT: Normocephalic cephalic atraumatic, pupils equal round reactive to light and accommodation, nares patent and no symmetrical, no tonsillar exudates, mucous membranes moist CV: Regular rate regular rhythm, no murmurs, rubs, or gallops Pulm: Lungs with wheezing (improved). No rhonchi, or rales GI: Soft, nontender, nondistended, bowel sounds present Neuro: CN 2-12 intact bilaterally, no focal signs. Ext: No lower extremity edema bilaterally Skin: no rashes lesions or ulcers Msk: Joints symmetrical in upper extremity and lower extremity bilaterally, no joint swelling. Lymph: No lymphadenopathy in upper extremity and lower extremity Manny Keys D.O. May 03, 2019 19:44
--- NOTE | 2019-05-03 20:07 | NUR ---
NURSE NOTES: Received patient awake, alert, verbal, resting in bed comfortably, visitors at bedside.
--- NOTE | 2019-05-03 20:31 | Consultation ---
History of Present Illness General Chief Complaint: Asthma Present Illness Allergies: Coded Allergies: BANANA (Verified Allergy, Unknown, 06/18/17) CODEINE (Verified Allergy, Unknown, 01/22/17) PINEAPPLE (Verified Allergy, Unknown, 06/18/17) Medication History Scheduled Albuterol Sulfate (Ventolin Hfa), 2 PUFFS INH EVERY 6 HOURS Ascorbic Acid* (Vitamin C*), 250 MG ORAL DAILY, (Reported) Beclomethasone Dipropionate 40MCG Oral Inh (Qvar 40*), 2 PUFFS INH TWICE A DAY, (Reported) Ferrous Sulfate* (Ferrous Sulfate*), 325 MG ORAL DAILY, (Reported) Ferrous Sulfate* (Ferrous Sulfate*), 325 MG ORAL TWICE A DAY Guaifenesin* (Guaifenesin*), 5 ML ORAL Q6H Prednisone* (Prednisone*), 40 MG ORAL DAILY Prednisone* (Prednisone*), 40 MG ORAL DAILY Scheduled PRN Albuterol Sulfate* (Albuterol Sulfate Mdi*), 2 PUFF INH Q4H PRN for cough/ wheezing Patient History Healthcare decision maker Resuscitation status Advanced Directive on File Physical Exam Last 24 Hour Vital Signs Date Time Temp Pulse Resp B/P (MAP) Pulse Ox O2 Delivery O2 Flow Rate FiO2 05/03/19 20:24 97.8 77 20 143/77 (99) 94 05/03/19 20:17 Nasal Cannula 2.0 05/03/19 18:35 98.2 76 18 141/82 (101) 95 05/03/19 16:00 98.1 84 19 117/65 (82) 98 05/03/19 12:00 97.7 71 18 138/89 (105) 98 05/03/19 12:00 80 05/03/19 09:29 98 Nasal Cannula 2.0 28 05/03/19 09:29 72 20 98 Room Air 28 05/03/19 09:00 Nasal Cannula 2.0 05/03/19 08:00 98.0 76 18 137/94 (108) 96 05/03/19 08:00 76 05/03/19 04:00 97.0 67 20 138/79 (98) 97 05/03/19 04:00 66 05/03/19 00:33 79 20 99 Nasal Cannula 2.0 28 05/03/19 00:23 72 20 97 Nasal Cannula 2.0 28 05/03/19 00:23 97 Nasal Cannula 2.0 28 05/03/19 00:00 73 05/03/19 00:00 97.7 71 20 132/77 (95) 97 05/02/19 21:00 Nasal Cannula 2.0 05/02/19 20:35 81 20 97 Room Air 21 Intake and Output 05/02/19 05/03/19 19:00 07:00 Intake Total 960 ml Output Total 2 ml Balance 960 ml -2 ml Intake Oral 960 ml Output Urine Total 2 ml # Voids 4 Laboratory Tests Test 05/03/19 06:42 White Blood Count 12.1 K/UL (4.8-10.8) H Red Blood Count 4.19 M/UL (4.20-5.40) L Hemoglobin 8.5 G/DL (12.0-16.0) L Hematocrit 27.9 % (37.0-47.0) L Mean Corpuscular Volume 67 FL (80-99) L Mean Corpuscular Hemoglobin 20.4 PG (27.0-31.0) L Mean Corpuscular Hemoglobin Concent 30.5 G/DL (32.0-36.0) L Red Cell Distribution Width 17.8 % (11.6-14.8) H Platelet Count 341 K/UL (150-450) Mean Platelet Volume 6.6 FL (6.5-10.1) Neutrophils (%) (Auto) 80.5 % (45.0-75.0) H Lymphocytes (%) (Auto) 15.6 % (20.0-45.0) L Monocytes (%) (Auto) 3.7 % (1.0-10.0) Eosinophils (%) (Auto) 0.0 % (0.0-3.0) Basophils (%) (Auto) 0.3 % (0.0-2.0) Sodium Level 142 MMOL/L (136-145) Potassium Level 4.0 MMOL/L (3.5-5.1) Chloride Level 107 MMOL/L (98-107) Carbon Dioxide Level 26 MMOL/L (21-32) Anion Gap 9 mmol/L (5-15) Blood Urea Nitrogen 14 mg/dL (7-18) Creatinine 0.6 MG/DL (0.55-1.30) Estimat Glomerular Filtration Rate > 60 mL/min (>60) Glucose Level 146 MG/DL (74-106) H Calcium Level 8.6 MG/DL (8.5-10.1) Height (Feet): 5 Height (Inches): 2.00 Weight (Pounds): 241 Medications Current Medications Medications (Trade) Dose Ordered Sig/Ming Route PRN Reason Start Time Stop Time Status Last Admin Dose Admin Acetaminophen (Tylenol) 650 mg Q4H PRN ORAL Mild Pain (Pain Scale 1-3) 05/03/19 18:25 06/02/19 18:24 Albuterol/ Ipratropium (Albuterol/ Ipratropium) 3 ml Q6H PRN HHN Shortness of Breath 05/03/19 18:25 05/08/19 18:24 Azithromycin 500 mg/Sodium Chloride 275 ml @ 275 mls/hr DAILY IV 05/04/19 09:00 05/09/19 08:59 Dextrose (Dextrose 50%) 25 ml Q30M PRN IV Hypoglycemia 05/03/19 18:45 06/02/19 10:44 Dextrose (Dextrose 50%) 50 ml Q30M PRN IV Hypoglycemia 05/03/19 18:45 06/02/19 10:44 Diphenhydramine HCl (Benadryl) 25 mg Q6H PRN ORAL Itching/Pruritis 05/03/19 18:25 06/02/19 18:24 Docusate Sodium (Colace) 100 mg EVERY 12 HOURS ORAL 05/03/19 21:00 05/31/19 20:59 Enoxaparin Sodium (Lovenox) 40 mg Q12H SUBQ 05/03/19 21:00 06/01/19 08:59 Famotidine (Pepcid) 20 mg BID ORAL 05/04/19 09:00 06/01/19 08:59 Guaifenesin/ Dextromethorphan (Robitussin DM Syrup) 10 ml Q6H PRN ORAL For Cough 05/03/19 18:26 06/02/19 18:25 Insulin Aspart (NovoLOG) BEFORE MEALS AND HS SUBQ 05/03/19 21:00 06/02/19 11:29 Lorazepam (Ativan) 1 mg Q4H PRN ORAL For Anxiety 05/03/19 18:26 05/10/19 18:25 Magnesium Hydroxide (Mom) 30 ml HSPRN PRN ORAL Constipation 05/03/19 18:26 06/02/19 18:25 Methylprednisolone Sodium Succinate (Solu-MEDROL) 40 mg EVERY 6 HOURS IVP 05/04/19 00:00 06/01/19 00:00 Ondansetron HCl (Zofran) 4 mg Q6H PRN IVP Nausea & Vomiting 05/03/19 18:26 06/02/19 18:25 Sodium Chloride 1,000 ml @ 50 mls/hr Q20H IV 05/03/19 18:25 06/02/19 18:24 Assessment/Plan Assessment/Plan: Hematology Consultdwight LINCOLN MD: Shazia Keys Reason for Hospitalization: Asthma RFC: Anemia ongoing DOS: 05/03/19 HPI This is a 43-year-old female with a past medical history of asthma, diagnosed approximately 3 years ago, who presents emergency room secondary to a few days of worsening shortness of breath, cough and wheezing. Patient was actually seen here in the emergency room a day ago and sent home but has not obtained relief with medication. At home she uses nebulizers and inhalers. She does complain of calf pain and shortness of breath and pleuritic chest pain so ER did rule patient out for pulmonary embolism and CT angiogram was negative. After obtaining greater history with patient interestingly enough it appears that patient symptoms started after she was exposed to some harsh chemicals, sadly it sounds as though it was during her sons embalming after he approximately 3 years ago. Patient denies other symptoms and what are stated above. Will obtain Doppler ultrasound to rule out DVT--> turned out to be negative. Labs have been reviewed , cbc noted, since given steriods, breathing somewhat better. Coded Allergies: BANANA (Verified Allergy, Unknown, 06/18/17) CODEINE (Verified Allergy, Unknown, 01/22/17) PINEAPPLE (Verified Allergy, Unknown, 06/18/17) Medication History Scheduled Albuterol Sulfate (Ventolin Hfa), 2 PUFFS INH EVERY 6 HOURS Ascorbic Acid* (Vitamin C*), 250 MG ORAL DAILY, (Reported) Beclomethasone Dipropionate 40MCG Oral Inh (Qvar 40*), 2 PUFFS INH TWICE A DAY, (Reported) Ferrous Sulfate* (Ferrous Sulfate*), 325 MG ORAL DAILY, (Reported) Ferrous Sulfate* (Ferrous Sulfate*), 325 MG ORAL TWICE A DAY Guaifenesin* (Guaifenesin*), 5 ML ORAL Q6H Prednisone* (Prednisone*), 40 MG ORAL DAILY Prednisone* (Prednisone*), 40 MG ORAL DAILY Albuterol Sulfate* (Albuterol Sulfate Mdi*), 2 PUFF INH Q4H PRN for cough/ wheezing Patient History History Provided By: Patient Healthcare decision maker Resuscitation status Family History Family History: FH: HTN (hypertension) FH: diabetes mellitus ROS (review of systems): Constitutional: No fever, no chills, no night sweats, no fatigue Skin: No rashes, lumps, itchiness, dryness HEENT: No SANDOVAL, ear ache, visual changes, double vision, nosebleeds Breasts: No lumps, pain, discharge Pulmonary: No cough, sputum, shortness of breath, coughing up blood ++ decreased breath sounds Cardiovascular: No chest pain, tightness, palpitations, syncope, PND GI: No nausea, vomiting, diarrhea, melena, hematochezia, change in appetite, : No dysuria, frequency, urgency, urinary incontinence, foamy urine Musculoskeletal: No joint swelling or muscle pain, trauma, back pain Neurologic: No dizziness, fainting, seizures, changes in smell or taste Psychiatric: No nervousness, stress, or depression, anxiety, hallucinations Endocrine: No weight change, heat or cold intolerance, tremor, insomnia Physical Exam: Vitals: reviewed General: NAD HEENT: nc, at Neck: supple Chest: mild rhonchi bilaterally ++ Cardiovascular: RRR, no s3, s4 Abdomen: soft, nontender, nd Extremities: no cce, normal range of motion Labs: noted Imaging: reviewed Assessment/Recs # Anemia of chronic disease due to underlying chronic medical issues, multifactorial v Gi bleed --> Anemia workup has been ordered, rule out gi bleed --> No evidence of hemolysis is noted, peripheral smear has been reviewed. --> Hgb goal >7. Transfuse prn. --> Epogen or iron at this time is not particularly indicated --> Medications have been reviewed --> low threshold for gi evaluation in case has occult + --> bone marrow biopsy is not indicated given the other more likely causes # Leukocytosis with steriods administration with Asthma exacerbation --> steriods as needed --> smear is noted --> as per pulm/id # Upper respiratory infection, CT angiogram negative for pulmonary embolism however does reveal atelectasis, patient has had a productive cough --> likely to improve on abx # Anxiety, depression-related to her son's recent passing --> Psych recs as needed # Dvt ppx lovenox The timing of this note does not necessarily reflect the time of the patient was seen. Greatly appreciate consultation! Frankie Lake MD May 03, 2019 20:31
[2019-05-04] MEDS: Solu-MEDROL 40mg Inj IVP SCH ×2 (00:17→05:43)
[2019-05-04 00:26] VITALS: BP 133/77
[2019-05-04 04:23] VITALS: BP 131/79
[2019-05-04] MEDS: NovoLOG Insulin Flexpen SUBQ SCH ×4 (05:43→20:51)
--- NOTE | 2019-05-04 07:18 | NUR ---
HAND-OFF: Report given to Fauzia Conde..
--- NOTE | 2019-05-04 07:43 | NUR ---
NURSE NOTES: RECEIVED PATIENT A/A/OX4, IN BED HAVING BREAKFAST. AMBULATORY. NO ACUTE CARDIO-RESP DISTRESS NOTED. SKIN IS INTACT. ON RA. IV SITE PATENT AND INTACT. KEPT BED IN THE LOWEST POSITION. SIDERAILS ARE UPX2, CALL LIGHT IS WITHIN REACH. BED ALARM ENGAGED AND LOCKED. WILL CONT TO MONITOR.
[2019-05-04 07:45] LABS: BASOPHILS % (AUTO) 0.6 % (0.0-2.0); HEMATOCRIT 29.8 % (37.0-47.0); HEMOGLOBIN 9.1 G/DL (12.0-16.0); MEAN CORPUSCULAR VOLUME 68 FL (80-99); MONOCYTES % (AUTO) 3.6 % (1.0-10.0); NEUTROPHILS % (AUTO) 75.8 % (45.0-75.0); PLATELET COUNT 281 K/UL (150-450); RED BLOOD COUNT 4.41 M/UL (4.20-5.40); RED CELL DISTRIBUTION WIDTH 17.7 % (11.6-14.8); WHITE BLOOD COUNT 8.7 K/UL (4.8-10.8)
[2019-05-04 07:46] LABS: ANION GAP 13 mmol/L (5-15); BLOOD UREA NITROGEN 17 mg/dL (7-18); CALCIUM 8.4 MG/DL (8.5-10.1); CARBON DIOXIDE 22 MMOL/L (21-32); CHLORIDE 107 MMOL/L (98-107); CREATININE 0.6 MG/DL (0.55-1.30); SODIUM 141 MMOL/L (136-145)
[2019-05-04 07:52] LABS: IRON 16 ug/dL (50-175); TOTAL IRON BINDING CAPACITY 247 ug/dL (250-450)
[2019-05-04 07:54] LABS: % IRON SATURATION 6 % (15-50)
[2019-05-04 08:00] VITALS: BP 126/78
[2019-05-04 08:05] LABS: FERRITIN 3 NG/ML (8-388)
[2019-05-04] MEDS: Docusate 100mg cap ORAL SCH ×2 (08:16→20:50)
[2019-05-04] MEDS: Enoxaparin 40mg Inj SUBQ SCH ×2 (08:45→20:50)
[2019-05-04] MEDS ORDERED: Azithromycin 500 MG in NS 275 ML IV SCH (09:00)
[2019-05-04 12:00] VITALS: BP 115/79
--- NOTE | 2019-05-04 13:21 | NUR ---
*-* INSURANCE *-* ALL AVAILABLE CLINICALS HAVE BEEN FAXED TO: [facility] NO REF# PH# [phone] FAX# [phone] REVIEWS/CLINICALS & [facility] NO REF# PH# [phone]
[2019-05-04] MEDS: Azithromycin 250mg tab ORAL SCH (14:11)
--- NOTE | 2019-05-04 15:00 | Consultation ---
DATE OF CONSULTATION: 05/04/2019 PULMONARY CONSULTATION CONSULTING PHYSICIAN: Tres Gaming M.D. HISTORY OF PRESENT ILLNESS: This is a 43-year-old female with history of asthma. She is stating that her asthma has been poorly managed for the last several years and even minor irritants can exacerbate it. She presented to the emergency room several days ago with shortness of breath. This morning, she states she is feeling better. She uses QVAR and albuterol at home. She underwent a complete workup, which was negative for PE or DVT. REVIEW OF SYSTEMS: Denies any headaches, hematemesis, melena, hematochezia, night sweats, or weight loss. HOME MEDICATIONS: Albuterol and QVAR. ALLERGIES: To codeine. PHYSICAL EXAMINATION: GENERAL: Reveals a 43-year-old female. HEENT: Unremarkable. LUNGS: Shows bilateral rhonchi and wheezing. ABDOMEN: Soft. NEUROLOGIC: Nonfocal. LABORATORY DATA: Lab testing is unremarkable with normal CBC and BMP. Hemoglobin 9.1. Eosinophil count is normal. Chemistries are unremarkable. Glucose 147. Coags negative. Urinalysis negative. IMAGING STUDIES: X-ray chest is negative. Venous duplex negative. CT chest negative. IMPRESSION: Asthma, poorly controlled. DISCUSSION: I have had a long discussion about her present medications and care. Her technique is appropriate and she is using inhaled corticosteroids and albuterol. suspicion that she has untreated REY, which may be a component for exacerbation of asthma. She may also have untreated acid reflux. I will start her on aggressive PPI therapy. I discussed with the patient and recommend outpatient follow up with Pulmonology. Tres Gaming M.D. DR: EVY JOB#: [id number] CC:
--- NOTE | 2019-05-04 15:39 | Hematology/Onc Progress Note ---
Assessment/Plan Assessment/Plan Assessment/Recs # Anemia of iron deficiency, likely due to ongoing mensturation, ferirtin of 3! have started on po iron --> Anemia workup has been ordered, rule out gi bleed --> No evidence of hemolysis is noted, peripheral smear has been reviewed. --> Hgb goal >7. Transfuse prn. --> PO IRON STARTED --> Medications have been reviewed --> low threshold for gi evaluation in case has occult + # Leukocytosis with steriods administration with Asthma exacerbation --> steriods as needed --> smear is noted --> as per pulm/id # Upper respiratory infection, CT angiogram negative for pulmonary embolism however does reveal atelectasis, patient has had a productive cough --> likely to improve on abx --> per pulm recs, methods of nebulizer / inhaler ccessed # Anxiety, depression-related to her son's recent passing --> Psych recs as needed # Dvt ppx lovenox The timing of this note does not necessarily reflect the time of the patient was seen. Greatly appreciate consultation! Subjective HEENT: Denies: no symptoms, eye pain, blurred vision, tearing, double vision, ear pain, ear discharge, nose pain, nose congestion, throat pain, throat swelling, mouth pain, mouth swelling, other Cardiovascular: Denies: no symptoms, chest pain, edema, irregular heart rate, lightheadedness, palpitations, syncope, other Respiratory: Denies: no symptoms, cough, shortness of breath, SOB with excertion, SOB at rest, sputum, wheezing, other Gastrointestinal/Abdominal: Denies: no symptoms, abdomen distended, abdominal pain, black stools, tarry stools, blood in stool, constipated, diarrhea, difficulty swallowing, nausea, poor appetite, poor fluid intake, rectal bleeding , vomiting, other Genitourinary: Denies: no symptoms, burning, discharge, frequency, flank pain, hematuria, incontinence, pain, urgency, other Neurologic/Psychiatric: Denies: no symptoms, anxiety, depressed, emotional problems, headache, numbness, paresthesia, pre-existing deficit, seizure, tingling, tremors, weakness, other Endocrine: Denies: no symptoms, excessive sweating, flushing, intolerance to cold, intolerance to heat, increased hunger, increased thirst, increased urine, unexplained weight gain, unexplained weight loss, other Hematologic/Lymphatic: Denies: no symptoms, anemia, easy bleeding, easy bruising, adenopathy, other Allergies: Coded Allergies: BANANA (Verified Allergy, Unknown, 06/18/17) CODEINE (Verified Allergy, Unknown, 01/22/17) PINEAPPLE (Verified Allergy, Unknown, 06/18/17) Subjective 05/04: no major changes, for chepe have started on po iron, pulm asscessed Objective Objective Current Medications Medications (Trade) Dose Ordered Sig/Ming Route PRN Reason Start Time Stop Time Status Last Admin Dose Admin Acetaminophen (Tylenol) 650 mg Q4H PRN ORAL Mild Pain (Pain Scale 1-3) 05/03/19 18:25 06/02/19 18:24 05/03/19 21:19 Albuterol/ Ipratropium (Albuterol/ Ipratropium) 3 ml Q6H PRN HHN Shortness of Breath 05/03/19 18:25 05/08/19 18:24 05/04/19 11:25 Azithromycin (Zithromax) 250 mg DAILY ORAL 05/04/19 14:15 05/06/19 14:14 05/04/19 14:11 Dextrose (Dextrose 50%) 25 ml Q30M PRN IV Hypoglycemia 05/03/19 18:45 06/02/19 10:44 Dextrose (Dextrose 50%) 50 ml Q30M PRN IV Hypoglycemia 05/03/19 18:45 06/02/19 10:44 Diphenhydramine HCl (Benadryl) 25 mg Q6H PRN ORAL Itching/Pruritis 05/03/19 18:25 06/02/19 18:24 Docusate Sodium (Colace) 100 mg EVERY 12 HOURS ORAL 05/03/19 21:00 05/31/19 20:59 05/04/19 08:16 Enoxaparin Sodium (Lovenox) 40 mg Q12H SUBQ 05/03/19 21:00 06/01/19 08:59 05/04/19 08:45 Famotidine (Pepcid) 20 mg BID ORAL 05/04/19 09:00 06/01/19 08:59 05/04/19 08:16 Ferrous Sulfate (Feosol) 325 mg DAILY ORAL 05/04/19 13:11 06/03/19 13:10 05/04/19 14:11 Guaifenesin/ Dextromethorphan (Robitussin DM Syrup) 10 ml Q6H PRN ORAL For Cough 05/03/19 18:26 06/02/19 18:25 05/03/19 21:19 Insulin Aspart (NovoLOG) BEFORE MEALS AND HS SUBQ 05/03/19 21:00 06/02/19 11:29 Lorazepam (Ativan) 1 mg Q4H PRN ORAL For Anxiety 05/03/19 18:26 05/10/19 18:25 Magnesium Hydroxide (Mom) 30 ml HSPRN PRN ORAL Constipation 05/03/19 18:26 06/02/19 18:25 Ondansetron HCl (Zofran) 4 mg Q6H PRN IVP Nausea & Vomiting 05/03/19 18:26 06/02/19 18:25 Pantoprazole (Protonix) 40 mg EVERY 12 HOURS ORAL 05/04/19 09:00 06/03/19 08:59 05/04/19 08:16 Prednisone (predniSONE) 50 mg DAILY ORAL 05/04/19 14:32 06/03/19 14:31 Last 24 Hour Vital Signs Date Time Temp Pulse Resp B/P (MAP) Pulse Ox O2 Delivery O2 Flow Rate FiO2 05/04/19 12:00 97.7 78 18 115/79 (91) 96 05/04/19 11:35 72 18 100 Room Air 75 18 98 05/04/19 08:44 98 Room Air 05/04/19 08:42 75 18 98 Room Air 28 05/04/19 08:00 98.1 80 20 126/78 (94) 96 05/04/19 04:23 97.9 64 20 131/79 (96) 95 05/04/19 00:26 98.2 63 18 133/77 (95) 95 05/03/19 21:49 97.8 05/03/19 20:24 97.8 77 20 143/77 (99) 94 05/03/19 20:17 Nasal Cannula 2.0 05/03/19 18:35 98.2 76 18 141/82 (101) 95 05/03/19 16:00 98.1 84 19 117/65 (82) 98 05/03/19 12:00 97.7 71 18 138/89 (105) 98 05/03/19 12:00 80 05/03/19 09:29 98 Nasal Cannula 2.0 28 05/03/19 09:29 72 20 98 Room Air 28 05/03/19 09:00 Nasal Cannula 2.0 05/03/19 08:00 98.0 76 18 137/94 (108) 96 05/03/19 08:00 76 05/03/19 04:00 97.0 67 20 138/79 (98) 97 05/03/19 04:00 66 05/03/19 00:33 79 20 99 Nasal Cannula 2.0 28 05/03/19 00:23 72 20 97 Nasal Cannula 2.0 28 05/03/19 00:23 97 Nasal Cannula 2.0 28 05/03/19 00:00 73 05/03/19 00:00 97.7 71 20 132/77 (95) 97 05/02/19 21:00 Nasal Cannula 2.0 05/02/19 20:35 81 20 97 Room Air 21 05/02/19 20:00 89 05/02/19 20:00 97.9 78 18 125/76 (92) 96 05/02/19 16:00 98.2 79 18 131/73 (92) 97 Intake and Output 05/03/19 05/04/19 19:00 07:00 Intake Total 600 ml 1080 ml Balance 600 ml 1080 ml Intake Oral 600 ml 480 ml IV Total 600 ml # Voids 4 4 Labs Test 05/02/19 06:27 05/02/19 14:40 05/03/19 06:42 05/04/19 06:28 White Blood Count 12.9 K/UL (4.8-10.8) 12.1 K/UL (4.8-10.8) 8.7 K/UL (4.8-10.8) Red Blood Count 4.21 M/UL (4.20-5.40) 4.19 M/UL (4.20-5.40) 4.41 M/UL (4.20-5.40) Hemoglobin 8.9 G/DL (12.0-16.0) 8.5 G/DL (12.0-16.0) 9.1 G/DL (12.0-16.0) Hematocrit 28.3 % (37.0-47.0) 27.9 % (37.0-47.0) 29.8 % (37.0-47.0) Mean Corpuscular Volume 67 FL (80-99) 67 FL (80-99) 68 FL (80-99) Mean Corpuscular Hemoglobin 21.0 PG (27.0-31.0) 20.4 PG (27.0-31.0) 20.6 PG (27.0-31.0) Mean Corpuscular Hemoglobin Concent 31.3 G/DL (32.0-36.0) 30.5 G/DL (32.0-36.0) 30.5 G/DL (32.0-36.0) Red Cell Distribution Width 17.9 % (11.6-14.8) 17.8 % (11.6-14.8) 17.7 % (11.6-14.8) Platelet Count 348 K/UL (150-450) 341 K/UL (150-450) 281 K/UL (150-450) Mean Platelet Volume 7.0 FL (6.5-10.1) 6.6 FL (6.5-10.1) 6.6 FL (6.5-10.1) Neutrophils (%) (Auto) % (45.0-75.0) 80.5 % (45.0-75.0) 75.8 % (45.0-75.0) Lymphocytes (%) (Auto) % (20.0-45.0) 15.6 % (20.0-45.0) 20.0 % (20.0-45.0) Monocytes (%) (Auto) % (1.0-10.0) 3.7 % (1.0-10.0) 3.6 % (1.0-10.0) Eosinophils (%) (Auto) % (0.0-3.0) 0.0 % (0.0-3.0) 0.0 % (0.0-3.0) Basophils (%) (Auto) % (0.0-2.0) 0.3 % (0.0-2.0) 0.6 % (0.0-2.0) Differential Total Cells Counted 100 Neutrophils % (Manual) 87 % (45-75) Lymphocytes % (Manual) 11 % (20-45) Monocytes % (Manual) 2 % (1-10) Eosinophils % (Manual) 0 % (0-3) Basophils % (Manual) 0 % (0-2) Band Neutrophils 0 % (0-8) Platelet Estimate Adequate Platelet Morphology Normal Hypochromasia 1+ Anisocytosis 1+ Prothrombin Time 10.2 SEC (9.30-11.50) Prothromb Time International Ratio 1.0 (0.9-1.1) Activated Partial Thromboplast Time 24 SEC (23-33) Sodium Level 142 MMOL/L (136-145) 142 MMOL/L (136-145) 141 MMOL/L (136-145) Potassium Level 4.1 MMOL/L (3.5-5.1) 4.0 MMOL/L (3.5-5.1) 4.0 MMOL/L (3.5-5.1) Chloride Level 107 MMOL/L (98-107) 107 MMOL/L (98-107) 107 MMOL/L (98-107) Carbon Dioxide Level 26 MMOL/L (21-32) 26 MMOL/L (21-32) 22 MMOL/L (21-32) Anion Gap 9 mmol/L (5-15) 9 mmol/L (5-15) 13 mmol/L (5-15) Blood Urea Nitrogen 11 mg/dL (7-18) 14 mg/dL (7-18) 17 mg/dL (7-18) Creatinine 0.5 MG/DL (0.55-1.30) 0.6 MG/DL (0.55-1.30) 0.6 MG/DL (0.55-1.30) Estimat Glomerular Filtration Rate > 60 mL/min (>60) > 60 mL/min (>60) > 60 mL/min (>60) Glucose Level 139 MG/DL (74-106) 146 MG/DL (74-106) 147 MG/DL (74-106) Hemoglobin A1c 6.3 % (4.3-6.0) Calcium Level 8.8 MG/DL (8.5-10.1) 8.6 MG/DL (8.5-10.1) 8.4 MG/DL (8.5-10.1) Magnesium Level 2.1 MG/DL (1.8-2.4) Total Bilirubin 0.3 MG/DL (0.2-1.0) Aspartate Amino Transf (AST/SGOT) 12 U/L (15-37) Alanine Aminotransferase (ALT/SGPT) 18 U/L (12-78) Alkaline Phosphatase 91 U/L (46-116) Total Protein 7.7 G/DL (6.4-8.2) Albumin 3.2 G/DL (3.4-5.0) Globulin 4.5 g/dL Albumin/Globulin Ratio 0.7 (1.0-2.7) Stool Occult Blood Negative (NEGATIVE) Iron Level 16 ug/dL (50-175) Total Iron Binding Capacity 247 ug/dL (250-450) Percent Iron Saturation 6 % (15-50) Unsaturated Iron Binding 231 ug/dL (112-346) Ferritin 3 NG/ML (8-388) Height (Feet): 5 Height (Inches): 2.00 Weight (Pounds): 241 Frankie Lake MD May 04, 2019 15:39
[2019-05-04 16:00] VITALS: BP 129/83
--- NOTE | 2019-05-04 16:04 | NUR ---
CASE MANAGEMENT:REVIEW SI;AC ASTHMA EXACERBATION. HYPOXEMIA. 98.2 80 20 131/79 95% ON RA IS;PREDNISONE PO QD ZITHROMAX PO QS PROTONIX PO Q12 HRS LOVENOX SUBQ Q12 HRS DUO NEB HHN Q6HRS MED SURG STATUS DCP;FROM HOME
--- NOTE | 2019-05-04 19:06 | NUR ---
HAND-OFF: Report given to
--- NOTE | 2019-05-04 19:51 | NUR ---
NURSE NOTES: Received patient awake, alert, verbal, resting in bed, no SOB, relatives at bedside.
--- NOTE | 2019-05-04 19:53 | General Progress Note ---
Assessment/Plan Assessment/Plan: #Acute Asthma exacerbation likely 2/2 URI and anxiety from son's recent passing - much improved #Acute hypoxic respiratory failure secondary to asthma exacerbation - on room air #Nonspecific right basilar groundglass opacity, may reflect a small area of inflammation #atelectasis >influenza negative >CT angiogram negative for pulmonary embolism > Venous duplex negative -Change to prednisone 50 mg daily. May go home with long taper. Monitor blood sugars. -Continue azithromycin for atypical coverage -Doubt serious bacterial infection. d/w pulm -Continue duo nebs -Protonix BID as GERD may be contributing to Asthma -Pulmonary consult regarding GGO and recurrent asthma exacerbations: Dr. Gaming Supportive measures, antinausea, pain, PRN blood pressure medication -only on QVAR at home. May need to switch to alternative agent if covered by insurance. -Psychiatry consult: Dr. La -Extensive discussion again on 05/05/19 regarding diagnosis prognosis and plan of care including need for outpatient sleep study, need to follow up with her PCP regarding ENA and psych for anxiety. All questions answered #suspected REY -will need outpatient sleep study per PUlm #Prediabetes >Hemoglobin A1C 6.3 -counseled on diet and exercise and weight loss -offered therapy with metformin on discharge the patient would like to think about it and consider lifestyle changes first. Extensive discussion regarding prediabetes and diet and lifestyle changes. All questions answered #iron deficiency anemia. Patient endorses heavy menses for the past few months #normocytic anemia -iron studies -CTM -no signs of active bleeding -May consider OCP at discharge -Start ferrous sulfate 325mg PO TID -stool occult blood negative DVT prophylaxis: Lovenox Code status: Full 39 minutes spent on this encounter. Discussed with Pulm and RN. > 50% spent on counseling and care coordination. I spent an additional 31 minutes of further face to face time on counseling and care coordination in addition to usual care as stated above. Time of note may not reflect time patient was seen. Subjective Date patient seen: May 05, 2019 Allergies: Coded Allergies: BANANA (Verified Allergy, Unknown, 06/18/17) CODEINE (Verified Allergy, Unknown, 01/22/17) PINEAPPLE (Verified Allergy, Unknown, 06/18/17) Subjective Patient feels much better after treatment. Continues to remain on room air. Would like to speak to psychiatry about anxiety and depression. No fevers or chills. No other symptoms. No other complaints controlled. Review of systems: Constitutional: Denies: chills, diaphoresis, fever, malaise, weakness, other HEENT: Denies: eye pain, blurred vision, tearing, double vision, ear pain, ear discharge, nose pain, nose congestion, throat pain, throat swelling, mouth pain , mouth swelling, Cardiovascular: Denies: chest pain, edema, lightheadedness, palpitations, syncope, Respiratory: Denies: orthopnea, with excertion, SOB at rest (improved), sputum , stridor, wheezing, other+ endorses some cough and SOB Gastrointestinal/Abdominal: Denies: abdomen distended, abdominal pain, black stools, tarry stools, blood in stool, constipated, diarrhea, difficulty swallowing, nausea, poor appetite, poor fluid intake, rectal bleeding, vomiting , other Genitourinary: Denies: burning, discharge, frequency, flank pain, hematuria, incontinence, pain, urgency, other Neurologic/Psychiatric: Denies: anxiety, depressed, emotional problems, headache, numbness, paresthesia, pre-existing deficit, seizure, tingling, tremors, weakness, other Endocrine: Denies: excessive sweating, flushing, intolerance to cold, intolerance to heat, increased hunger, increased thirst, increased urine, unexplained weight gain, unexplained weight loss, other Hematologic/Lymphatic: Denies: anemia, easy bleeding, easy bruising, other Objective Last 24 Hour Vital Signs Date Time Temp Pulse Resp B/P (MAP) Pulse Ox O2 Delivery O2 Flow Rate FiO2 05/04/19 16:00 98.9 81 20 129/83 (98) 98 05/04/19 12:00 97.7 78 18 115/79 (91) 96 05/04/19 11:35 72 18 100 Room Air 75 18 98 05/04/19 09:00 Nasal Cannula 2.0 05/04/19 08:44 98 Room Air 05/04/19 08:42 75 18 98 Room Air 28 05/04/19 08:00 98.1 80 20 126/78 (94) 96 05/04/19 04:23 97.9 64 20 131/79 (96) 95 05/04/19 00:26 98.2 63 18 133/77 (95) 95 05/03/19 21:49 97.8 05/03/19 20:24 97.8 77 20 143/77 (99) 94 05/03/19 20:17 Nasal Cannula 2.0 Intake and Output 05/03/19 05/04/19 19:00 07:00 Intake Total 600 ml 1080 ml Balance 600 ml 1080 ml Intake Oral 600 ml 480 ml IV Total 600 ml # Voids 4 4 Laboratory Tests 05/04/19 06:28: White Blood Count 8.7, Red Blood Count 4.41, Hemoglobin 9.1L, Hematocrit 29.8L, Mean Corpuscular Volume 68L, Mean Corpuscular Hemoglobin 20.6L, Mean Corpuscular Hemoglobin Concent 30.5L, Red Cell Distribution Width 17.7H, Platelet Count 281, Mean Platelet Volume 6.6, Neutrophils (%) (Auto) 75.8H, Lymphocytes (%) (Auto) 20.0, Monocytes (%) (Auto) 3.6, Eosinophils (%) (Auto) 0.0, Basophils (%) (Auto) 0.6, Sodium Level 141, Potassium Level 4.0, Chloride Level 107, Carbon Dioxide Level 22, Anion Gap 13, Blood Urea Nitrogen 17, Creatinine 0.6, Estimat Glomerular Filtration Rate > 60, Glucose Level 147H, Calcium Level 8.4L, Iron Level 16L, Total Iron Binding Capacity 247L, Percent Iron Saturation 6L, Unsaturated Iron Binding 231, Ferritin 3L Height (Feet): 5 Height (Inches): 2.00 Weight (Pounds): 241 Objective General: WDWN female in NAD, A&O x 4 HEENT: Normocephalic cephalic atraumatic, pupils equal round reactive to light and accommodation, nares patent and no symmetrical, no tonsillar exudates, mucous membranes moist CV: Regular rate regular rhythm, no murmurs, rubs, or gallops Pulm: Lungs with slight wheezing (improved). No rhonchi, or rales GI: Soft, nontender, nondistended, bowel sounds present Neuro: CN 2-12 intact bilaterally, no focal signs. Ext: No lower extremity edema bilaterally Skin: no rashes lesions or ulcers Msk: Joints symmetrical in upper extremity and lower extremity bilaterally, no joint swelling. Lymph: No lymphadenopathy in upper extremity and lower extremity Manny Keys D.O. May 04, 2019 19:53
[2019-05-04 20:12] VITALS: BP 129/83
[2019-05-05 00:11] VITALS: BP 130/80
[2019-05-05 04:00] VITALS: BP 135/84
[2019-05-05] MEDS: NovoLOG Insulin Flexpen SUBQ SCH ×2 (06:30→11:30)
--- NOTE | 2019-05-05 07:17 | NUR ---
HAND-OFF: Report given to Peri Roberts RN.
--- NOTE | 2019-05-05 08:06 | NUR ---
NURSE NOTES: Patient awake and alert,respirations unlabored.Patient siting up in bed eating breakfast.Patient state she is feeling beyyer.Call light within reach.
[2019-05-05] MEDS: Docusate 100mg cap ORAL SCH (08:27)
[2019-05-05] MEDS: Azithromycin 250mg tab ORAL SCH (08:28)
[2019-05-05] MEDS: Enoxaparin 40mg Inj SUBQ SCH (08:30)
[2019-05-05] MEDS ORDERED: Solu-MEDROL 40mg Inj IVP SCH (09:00)
[2019-05-05] MEDS ORDERED: Azithromycin 250mg tab ORAL SCH (09:00)
[2019-05-05 10:49] VITALS: BP 121/66
--- NOTE | 2019-05-05 11:31 | Hematology/Onc Progress Note ---
Assessment/Plan Assessment/Plan Assessment/Recs # Anemia of iron deficiency, likely due to ongoing mensturation, ferirtin of 3! have started on po iron --> Anemia workup has been ordered, rule out gi bleed --> No evidence of hemolysis is noted, peripheral smear has been reviewed. --> Hgb goal >7. Transfuse prn. --> PO IRON STARTED --> Medications have been reviewed --> low threshold for gi evaluation in case has occult + # Leukocytosis with steroids administration with Asthma exacerbation --> steroids as needed --> smear is noted --> as per pulm/id --> abx: zithromax # Upper respiratory infection, CT angiogram negative for pulmonary embolism however does reveal atelectasis, patient has had a productive cough --> likely to improve on abx --> per pulm recs, methods of nebulizer / inhaler ccessed # Anxiety, depression-related to her son's recent passing --> Psych recs as needed # Dvt ppx lovenox The timing of this note does not necessarily reflect the time of the patient was seen. Greatly appreciate consultation! Subjective Allergies: Coded Allergies: BANANA (Verified Allergy, Unknown, 06/18/17) CODEINE (Verified Allergy, Unknown, 01/22/17) PINEAPPLE (Verified Allergy, Unknown, 06/18/17) Subjective 05/04: no major changes, for chepe have started on po iron, pulm asscessed 05/05: awake and alert, no overnight events, steroids, nc Objective Objective Current Medications Medications (Trade) Dose Ordered Sig/Ming Route PRN Reason Start Time Stop Time Status Last Admin Dose Admin Acetaminophen (Tylenol) 650 mg Q4H PRN ORAL Mild Pain (Pain Scale 1-3) 05/03/19 18:25 06/02/19 18:24 05/03/19 21:19 Albuterol/ Ipratropium (Albuterol/ Ipratropium) 3 ml Q6H PRN HHN Shortness of Breath 05/03/19 18:25 05/08/19 18:24 05/04/19 11:25 Azithromycin (Zithromax) 250 mg DAILY ORAL 05/04/19 14:15 05/06/19 14:14 05/05/19 08:28 Dextrose (Dextrose 50%) 25 ml Q30M PRN IV Hypoglycemia 05/03/19 18:45 06/02/19 10:44 Dextrose (Dextrose 50%) 50 ml Q30M PRN IV Hypoglycemia 05/03/19 18:45 06/02/19 10:44 Diphenhydramine HCl (Benadryl) 25 mg Q6H PRN ORAL Itching/Pruritis 05/03/19 18:25 06/02/19 18:24 Docusate Sodium (Colace) 100 mg EVERY 12 HOURS ORAL 05/03/19 21:00 05/31/19 20:59 05/05/19 08:27 Enoxaparin Sodium (Lovenox) 40 mg Q12H SUBQ 05/03/19 21:00 06/01/19 08:59 05/05/19 08:30 Famotidine (Pepcid) 20 mg BID ORAL 05/04/19 09:00 06/01/19 08:59 05/05/19 08:28 Ferrous Sulfate (Feosol) 325 mg THREE TIMES A DAY ORAL 05/04/19 18:30 06/03/19 18:29 05/05/19 08:28 Guaifenesin/ Dextromethorphan (Robitussin DM Syrup) 10 ml Q6H PRN ORAL For Cough 05/03/19 18:26 06/02/19 18:25 05/03/19 21:19 Insulin Aspart (NovoLOG) BEFORE MEALS AND HS SUBQ 05/03/19 21:00 06/02/19 11:29 Lorazepam (Ativan) 1 mg Q4H PRN ORAL For Anxiety 05/03/19 18:26 05/10/19 18:25 Magnesium Hydroxide (Mom) 30 ml HSPRN PRN ORAL Constipation 05/03/19 18:26 06/02/19 18:25 Ondansetron HCl (Zofran) 4 mg Q6H PRN IVP Nausea & Vomiting 05/03/19 18:26 06/02/19 18:25 Pantoprazole (Protonix) 40 mg EVERY 12 HOURS ORAL 05/04/19 09:00 06/03/19 08:59 05/05/19 08:28 Prednisone (predniSONE) 50 mg DAILY ORAL 05/04/19 14:32 06/03/19 14:31 05/05/19 08:28 Last 24 Hour Vital Signs Date Time Temp Pulse Resp B/P (MAP) Pulse Ox O2 Delivery O2 Flow Rate FiO2 05/05/19 10:49 97.2 78 18 121/66 (84) 97 05/05/19 09:00 Nasal Cannula 2.0 05/05/19 07:36 78 18 97 Room Air 21 05/05/19 07:36 97 Room Air 21 05/05/19 04:00 98.4 88 18 135/84 (101) 96 05/05/19 00:11 98.2 79 18 130/80 (97) 95 05/04/19 20:30 70 16 98 Room Air 21 05/04/19 20:22 98 Room Air 05/04/19 20:12 98.4 82 19 129/83 (98) 95 05/04/19 20:10 Nasal Cannula 2.0 05/04/19 16:00 98.9 81 20 129/83 (98) 98 05/04/19 12:00 97.7 78 18 115/79 (91) 96 05/04/19 11:35 72 18 100 Room Air 75 18 98 05/04/19 09:00 Nasal Cannula 2.0 05/04/19 08:44 98 Room Air 05/04/19 08:42 75 18 98 Room Air 21 05/04/19 08:00 98.1 80 20 126/78 (94) 96 05/04/19 04:23 97.9 64 20 131/79 (96) 95 05/04/19 00:26 98.2 63 18 133/77 (95) 95 05/03/19 21:49 97.8 05/03/19 20:24 97.8 77 20 143/77 (99) 94 05/03/19 20:17 Nasal Cannula 2.0 05/03/19 18:35 98.2 76 18 141/82 (101) 95 05/03/19 16:00 98.1 84 19 117/65 (82) 98 05/03/19 12:00 97.7 71 18 138/89 (105) 98 05/03/19 12:00 80 Intake and Output 05/04/19 05/05/19 19:00 07:00 Intake Total 980 ml 1 ml Balance 980 ml 1 ml Intake Oral 980 ml Other 1 ml # Voids 4 1 Labs Test 05/02/19 14:40 05/03/19 06:42 2/19/20 06:28 Stool Occult Blood Negative (NEGATIVE) White Blood Count 12.1 K/UL (4.8-10.8) 8.7 K/UL (4.8-10.8) Red Blood Count 4.19 M/UL (4.20-5.40) 4.41 M/UL (4.20-5.40) Hemoglobin 8.5 G/DL (12.0-16.0) 9.1 G/DL (12.0-16.0) Hematocrit 27.9 % (37.0-47.0) 29.8 % (37.0-47.0) Mean Corpuscular Volume 67 FL (80-99) 68 FL (80-99) Mean Corpuscular Hemoglobin 20.4 PG (27.0-31.0) 20.6 PG (27.0-31.0) Mean Corpuscular Hemoglobin Concent 30.5 G/DL (32.0-36.0) 30.5 G/DL (32.0-36.0) Red Cell Distribution Width 17.8 % (11.6-14.8) 17.7 % (11.6-14.8) Platelet Count 341 K/UL (150-450) 281 K/UL (150-450) Mean Platelet Volume 6.6 FL (6.5-10.1) 6.6 FL (6.5-10.1) Neutrophils (%) (Auto) 80.5 % (45.0-75.0) 75.8 % (45.0-75.0) Lymphocytes (%) (Auto) 15.6 % (20.0-45.0) 20.0 % (20.0-45.0) Monocytes (%) (Auto) 3.7 % (1.0-10.0) 3.6 % (1.0-10.0) Eosinophils (%) (Auto) 0.0 % (0.0-3.0) 0.0 % (0.0-3.0) Basophils (%) (Auto) 0.3 % (0.0-2.0) 0.6 % (0.0-2.0) Sodium Level 142 MMOL/L (136-145) 141 MMOL/L (136-145) Potassium Level 4.0 MMOL/L (3.5-5.1) 4.0 MMOL/L (3.5-5.1) Chloride Level 107 MMOL/L (98-107) 107 MMOL/L (98-107) Carbon Dioxide Level 26 MMOL/L (21-32) 22 MMOL/L (21-32) Anion Gap 9 mmol/L (5-15) 13 mmol/L (5-15) Blood Urea Nitrogen 14 mg/dL (7-18) 17 mg/dL (7-18) Creatinine 0.6 MG/DL (0.55-1.30) 0.6 MG/DL (0.55-1.30) Estimat Glomerular Filtration Rate > 60 mL/min (>60) > 60 mL/min (>60) Glucose Level 146 MG/DL (74-106) 147 MG/DL (74-106) Calcium Level 8.6 MG/DL (8.5-10.1) 8.4 MG/DL (8.5-10.1) Iron Level 16 ug/dL (50-175) Total Iron Binding Capacity 247 ug/dL (250-450) Percent Iron Saturation 6 % (15-50) Unsaturated Iron Binding 231 ug/dL (112-346) Ferritin 3 NG/ML (8-388) Height (Feet): 5 Height (Inches): 2.00 Weight (Pounds): 241 Objective Physical Exam: Vitals: reviewed General: NAD HEENT: nc, at Neck: supple Chest: mild rhonchi bilaterally ++ Cardiovascular: RRR, no s3, s4 Abdomen: soft, nontender, nd Extremities: no cce, normal range of motion Frankie Lake MD May 05, 2019 11:31
[2019-05-05] MEDS ORDERED: PREDNISONE2.5 MG ORAL (12:02)
[2019-05-05] MEDS ORDERED: COLACE100 MG ORAL (12:02)
[2019-05-05] MEDS ORDERED: PREDNISONE20 MG ORAL (12:02)
[2019-05-05] MEDS ORDERED: QVAR7.3 GM INH (12:02)
[2019-05-05] MEDS ORDERED: WIXELA 250-501 EACH IH (12:02)
[2019-05-05] MEDS ORDERED: FERROUS SULFAT325 MG ORAL (12:02)
[2019-05-05] MEDS ORDERED: VENTOLIN HFA18 GM INH (12:02)
[2019-05-05] MEDS ORDERED: PANTOPRAZOLE SO40 MG ORAL (12:02)
[2019-05-05] MEDS ORDERED: METFORMIN HCL500 M1 ORAL (12:02)
[2019-05-05] MEDS ORDERED: PREDNISONE10 MG ORAL (12:02)
--- NOTE | 2019-05-05 12:11 | Discharge Instructions ---
Discharge Instructions Discharge Instructions Diet: diabetic calorie control Resume Normal Activity?: Yes Activity: resume normal activities Follow Up Orders Follow up with your primary care provider within one week Follow up with Dr. Gaming if accepted by your insurance If Wixela is covered then take that and not QVAR. Otherwise just take QVAR Take prednisone taper as scheduled low carb diet and exercise Avoid asthma triggers For Congestive Heart Failure Reminder Report to your physician any weight gain of 5 pounds or more in one week. Manny Keys D.O. May 05, 2019 12:10
[2019-05-05] MEDS ORDERED: AEROCHAMBER1 EACH MC (12:12)
[2019-05-05] MEDS ORDERED: NS 275ml ONE (14:51)
[2019-05-05] MEDS ORDERED: Tubing IV Secondary IV ONE (14:51)
--- NOTE | 2019-05-05 14:59 | NUR ---
NURSE NOTES: Patient discharge at this time with discharge instructions given,Patient has her personal belongings,patient had no iv .Hospital name band removed.Patient accompany down to private vehicle,patient daughter will take patient [email or web address]
--- NOTE | 2019-05-05 21:53 | Discharge Summary ---
Discharge Summary Hospital Course Date of Admission May 01, 2019 at 16:16 Date of Discharge May 05, 2019 at 14:52 Admitting Diagnosis Status Asthmaticus [place] Carr is a 43 year old female who was admitted on May 01, 2019 at 16:16 for Status Asthmaticus Consultations pulmonology Hospital Course This is a 43-year-old female with a past medical history of asthma, diagnosed approximately 3 years ago, who presented to the emergency room secondary to a few days of worsening shortness of breath, cough and wheezing. Patient was actually seen here in the emergency room a day ago and sent home but has not obtained relief with medication. At home she uses nebulizers and inhalers. She does complain of calf pain and shortness of breath and pleuritic chest pain so ER did rule patient out for pulmonary embolism and CT angiogram was negative. After obtaining greater history with patient interestingly enough it appears that patient symptoms started after she was exposed to some harsh chemicals, sadly it sounds as though it was during her sons embalming after he approximately 3 years ago. Patient also endorses having recent URI symptoms of cough, sore throat, rhinorrhea which have all resolved. Pulmonology consulted given severity of exacerbation and recurrent exacerbations. On high dose steroids and titrated off of oxygen. Azithromycin continued for 5 days. Discharged on week long taper with resumption of advair 250 BID as outpatient and close follow up with pulmonology and primary care provider. Needs outpatient sleep study. Given protonix BID as well as GERD may be contributing to her symptoms as well. Found to be iron deficient and started on Ferrous Sulfate. OB negative. Likely from menorrhagia. Needs f/u with PCP and ObGyn as outpatient. Patient also started on metformin for pre-diabetes as well and counseled on diet and exercise. Psych saw patient for anxiety but patient refused treatment at this time. Continue to monitor as outpatient. Patient medically stable on discharge. Back to baseline breathing status. Discharged home. Review of systems: Constitutional: Denies: chills, diaphoresis, fever, malaise, weakness, other HEENT: Denies: eye pain, blurred vision, tearing, double vision, ear pain, ear discharge, nose pain, nose congestion, throat pain, throat swelling, mouth pain , mouth swelling, Cardiovascular: Denies: chest pain, edema, lightheadedness, palpitations, syncope, Respiratory: Denies: orthopnea, with excertion, SOB at rest (improved), sputum , stridor, wheezing, other+ endorses some cough and SOB Gastrointestinal/Abdominal: Denies: abdomen distended, abdominal pain, black stools, tarry stools, blood in stool, constipated, diarrhea, difficulty swallowing, nausea, poor appetite, poor fluid intake, rectal bleeding, vomiting , other Genitourinary: Denies: burning, discharge, frequency, flank pain, hematuria, incontinence, pain, urgency, other Neurologic/Psychiatric: Denies: anxiety, depressed, emotional problems, headache, numbness, paresthesia, pre-existing deficit, seizure, tingling, tremors, weakness, other Endocrine: Denies: excessive sweating, flushing, intolerance to cold, intolerance to heat, increased hunger, increased thirst, increased urine, unexplained weight gain, unexplained weight loss, other Hematologic/Lymphatic: Denies: anemia, easy bleeding, easy bruising, other General: WDWN female in NAD, A&O x 4 HEENT: Normocephalic cephalic atraumatic, pupils equal round reactive to light and accommodation, nares patent and no symmetrical, no tonsillar exudates, mucous membranes moist CV: Regular rate regular rhythm, no murmurs, rubs, or gallops Pulm: Lungs CTAB. no wheezes No rhonchi, or rales GI: Soft, nontender, nondistended, bowel sounds present Neuro: CN 2-12 intact bilaterally, no focal signs. Ext: No lower extremity edema bilaterally Skin: no rashes lesions or ulcers Msk: Joints symmetrical in upper extremity and lower extremity bilaterally, no joint swelling. Lymph: No lymphadenopathy in upper extremity and lower extremity last prog note #Acute Asthma exacerbation likely 2/2 URI and anxiety from son's recent passing - much improved #Acute hypoxic respiratory failure secondary to asthma exacerbation - on room air #Nonspecific right basilar groundglass opacity, may reflect a small area of inflammation #atelectasis >influenza negative >CT angiogram negative for pulmonary embolism > Venous duplex negative -Change to prednisone 50 mg daily. May go home with long taper. Monitor blood sugars. -Continue azithromycin for atypical coverage -Doubt serious bacterial infection. d/w pulm -Continue duo nebs -Protonix BID as GERD may be contributing to Asthma -Pulmonary consult regarding GGO and recurrent asthma exacerbations: Dr. Gaming Supportive measures, antinausea, pain, PRN blood pressure medication -only on QVAR at home. May need to switch to alternative agent if covered by insurance. -Psychiatry consult: Dr. La -Extensive discussion again on 05/05/19 regarding diagnosis prognosis and plan of care including need for outpatient sleep study, need to follow up with her PCP regarding ENA and psych for anxiety. All questions answered #suspected REY -will need outpatient sleep study per PUlm #Prediabetes >Hemoglobin A1C 6.3 -counseled on diet and exercise and weight loss -offered therapy with metformin on discharge the patient would like to think about it and consider lifestyle changes first. Extensive discussion regarding prediabetes and diet and lifestyle changes. All questions answered #iron deficiency anemia. Patient endorses heavy menses for the past few months #normocytic anemia -iron studies -CTM -no signs of active bleeding -May consider OCP at discharge -Start ferrous sulfate 325mg PO TID -stool occult blood negative DVT prophylaxis: Lovenox Code status: Full 38 minutes spent on this discharge. Discussed with Pulm and RN. > 50% spent on counseling and care coordination. Time of note may not reflect time patient was seen. Discharge Condition Upon Discharge: stable Discharge Vital Signs Last Vital Signs Date Time Temp Pulse Resp B/P (MAP) Pulse Ox O2 Delivery O2 Flow Rate FiO2 05/05/19 10:49 97.2 78 18 121/66 (84) 97 05/05/19 09:00 Nasal Cannula 2.0 05/05/19 07:36 21 Discharge Disposition Patient was discharged to home Discharge Diagnoses: (1) Asthma exacerbation (2) Acute respiratory failure (3) Prediabetes (4) Dyspnea (5) Urinary tract infection (6) Asthma (7) Iron deficiency anemia Discharge Instructions Discharge Instructions Activity: resume normal activities Manny Keys D.O. May 05, 2019 21:53
--- NOTE | 2019-05-06 16:15 | Consultation ---
DATE OF CONSULTATION: 05/06/2019 HISTORY OF PRESENT ILLNESS: The patient is a 43-year-old female with a history of multiple medical issues including asthma, anxiety disorder who has been admitted to the hospital for medical stabilization. The patient is presenting with anxiety, depressed mood, anhedonia, worthlessness, hopelessness. The patient is having insomnia at times. PAST PSYCHIATRIC HISTORY: Anxiety disorder. No suicide attempt. PAST MEDICAL HISTORY: Significant for asthma, urinary tract infection. ALLERGIES: Codeine. SUBSTANCE ABUSE HISTORY: No known history of illicit drug use or alcohol. MENTAL STATUS EXAMINATION: The patient is alert and oriented times self, place, and situation. Mood is anxious. Affect is constricted. Congruent with mood. Thought process is concrete. Thought content, no suicidal or homicidal ideation. ASSESSMENT: [place] I Anxiety disorder [place] II Deferred. [place] III As above [place] IV Low [place] V 50 PLAN: 1. The patient will benefit from low-dose of SSRI. 2. The patient is not an imminent danger to self or others. Callie La M.D. DR: Jean Carlos JOB#: [id number] CC:
== END 2019-05-05 14:52 | disposition home or self-care (01) | DRG 141 ==
LOC: EMR 14:28 → INTOOBSV 16:16 → 2E 16:16 → OBSVTOIN 16:16 → EDBEDREQ 21:56 → 4E 05-03 18:16
DX: J45.902 Unspecified asthma with status asthmaticus (principal); J96.01 Acute respiratory failure with hypoxia; J98.11 Atelectasis; Z88.6 Allergy status to analgesic agent; J06.9 Acute upper respiratory infection, unspecified; F41.8 Other specified anxiety disorders; D50.9 Iron deficiency anemia, unspecified; G47.33 Obstructive sleep apnea (adult) (pediatric); R73.03 Prediabetes
CPT/HCPCS: 36415; 71275; 80048; 80053; 81003; 81025; 82270; 82728; 82962; 83036; 83540; 83550; 83735; 85007; 85025; 85610; 85730; 86710; 87070; 87205; 93005; 93970; 94640; 94664; 96361; 96365; 96375; 99285; J1815; J2405; J7030; J7620